=== PATIENT | female | born 1960 | race Caucasian/White ===

== ENCOUNTER 2018-11-13 04:18 | Inpatient (IN) | payer BC, SELFPAY ==
[2018-11-13] VITALS (28 sets, daily range): BP systolic 115–156; BP diastolic 50–91; PULSE 96–123; RESP 16–25; TEMP 36.4–37.3; O2SAT 97–100; BMI 20.7; BMI 21.3
[2018-11-13 04:26] LABS: Bedside Glucose > 500 mg/dL (70-110)
[2018-11-13] MEDS: 0.9% Normal Saline 1,000 ML 1000 ML IV ×2 (04:50→05:51)
--- NOTE | 2018-11-13 05:33 | EKG12_ITS ---
Test Reason : DYSRHYTHMIA Blood Pressure : / mmHG Vent. Rate : 124 BPM Atrial Rate : 124 BPM P-R Int : 126 ms QRS Dur : 082 ms QT Int : 336 ms P-R-T Axes : 063 059 053 degrees QTc Int : 482 ms Sinus tachycardia Possible Left atrial enlargement Nonspecific ST abnormality Abnormal ECG Confirmed by PATRICIA TELLO, FIORELLA ([id number]), content editor PURA MEJIA ([id number]) on 11/14/2018 1:34:34 PM Referred By: OLIVER Confirmed By:FIORELLA GOMEZ MD
--- NOTE | 2018-11-13 05:33 | RAD_ITS ---
STUDY: X-RAY CHEST REASON FOR EXAM: Female, 58 years old. Fever. Vomiting. TECHNIQUE: Single AP portable view of the chest. COMPARISON: None. FINDINGS: The lungs are clear and expanded. There is no demonstrated pleural abnormality. Normal size heart. Normal mediastinum. There are calcified granulomas overlying the left hilum.. Normal visualized pulmonary arteries. Normal visualized aortic arch and descending thoracic aorta. There are no visualized acute osseous abnormalities. There is old right clavicular fracture. There are postsurgical changes in the left humerus. There is no demonstrated abnormality of the visualized soft tissue structures of the upper abdomen. RAD/Chest 1 View (Portable) IMPRESSION: No evidence for acute cardiopulmonary pathology. Electronically Signed: Ivan Zaragoza MD at 6:08 EDT , Service support ,
[2018-11-13 05:48] LABS: Bacteria 0 SEEN /hpf (None Seen); Mucous, Urine 0 SEEN /hpf (<or=2+); Red Blood Cells-Urine 0 SEEN /hpf (0-5); White Blood Cells 0 SEEN /hpf (0-5)
[2018-11-13] MEDS: proMETHazine 25 MG/ML Syringe 6.25 MG IV (05:51)
--- NOTE | 2018-11-13 06:02 | ED.VIS.GEN ---
History of Present Illness Chief Complaint: Nausea/Vomiting Informant: Patient Onset: Yesterday Context: Gradual Onset Timing: Continuous Quality: nonbilious nonbloody emesis Current Severity: Severe Maximum Severity: Severe Associated Symptoms: diarrhea, fever to 99.x, polyuria Narrative: Patient is a type I diabetic, her blood sugar meter started working improperly 2 days ago, so she has not been able to check her blood sugar since then, she has no insulin pump but injects medication, has been vomiting and not able to keep any fluids down since yesterday, denies any abdominal or chest pain or shortness of breath. She feels dehydrated. - Past Medical History (1) Type 1 diabetes mellitus Status: Chronic Past Medical History - Allergies and Home Meds Allergies/Adverse Reactions: Allergies Penicillins Adverse Reaction (Verified 11/13/18 04:22) Itching Primary Care Physician: Trev Guaman,Out of [Primary Care Provider] - Lives: With Family Smoking Status: Former smoker Drugs: None Review of Systems General: Reports: Fever, Malaise. Denies: Chills, Sweats Eyes: Denies: Visual changes - bilaterally, Diplopia ENT: Denies: Rhinorrhea, Sore throat Cardiovascular: Denies: Chest pain, Palpitations Respiratory: Denies: Dyspnea, Cough, Dyspnea on exertion Gastrointestinal: Reports: Nausea, Vomiting, Diarrhea. Denies: Abdominal pain, Melena, Hematochezia Genitourinary: Reports: Frequency. Denies: Dysuria, Hematuria Musculoskeletal: Denies: Back pain, Extremity Pain Skin: Denies: Rash, Abscess, Wounds Neurological: Denies: Headache, Weakness, Numbness Endocrine: Reports: Polyuria, Polydipsia Physical Exam Vital Signs/Narrative: Vital Signs Temp Pulse Resp BP Pulse Ox 11/13/18 04:22 141/57 H 11/13/18 04:19 99.1 F 123 H 18 99 Inital Vital Signs reviewed: Yes General: Well nourished, Well developed, No Acute Distress Head: Normocephalic, Atraumatic Eyes: Perrl, EOMI ENT: No rhinorrhea, TM's clear, Dry mucous membranes Neck: Supple, Nontender, No lymphadenopathy Cardiovascular: Regular rate, Regular rhythm, No murmurs, Tachycardia Respiratory: No distress, CTA bilaterally, Chest nontender Abdomen: Soft, Nontender, Nondistended, Normal bowel sounds Back: Nontender, Normal Inspection. Negative for: CVA tenderness Extremities: Nontender, No edema. Negative for: Calf Tenderness Skin: Normal color, No rash, No Trauma Neurological: Alert, Oriented x3, Cranial nerves II-XII grossly intact, Normal Strength, Normal Sensation Psychological: Normal affect, Normal Mood Diagnostic/Tx/Re-eval Impressions Chest X-Ray 11/13/18 05:33 IMPRESSION: No evidence for acute cardiopulmonary pathology. Electronically Signed: Ivan Zaragoza MD at 6:08 EDT , Service support , 11/13/18 05:33 Chest 1 View (Portable) [RAD] Stat Laboratory Results 11/13/18 11/13/18 11/13/18 04:21 04:30 04:30 WBC 23.9 H RBC 4.36 Hgb 14.0 Hct 41.5 MCV 95.2 MCH 32.1 H MCHC 33.7 RDW 12.6 RDW Differential 43.6 Plt Count 325 MPV 11.2 Immature Gran % (Auto) 1.000 H Neut % (Auto) 84.3 H Lymph % (Auto) 7.7 L Webb % (Auto) 6.4 Eos % (Auto) 0.3 Baso % (Auto) 0.3 Absolute Neuts (auto) 20.2 H Absolute Lymphs (auto) 1.85 Specimen Type Sample Site pH Bicarbonate Actual POC Total CO2 Base Excess O2 Saturation ABG pCO2 ABG pO2 Dereck Test O2 Delivery Device Blood Gas Notified Whom Blood Gas Notified Time Sodium 136 Potassium 4.4 Chloride 90 L Carbon Dioxide 11.0 L Anion Gap 35 H BUN 30 H Creatinine 1.60 H Estim Creat Clear Calc 37.13 Est GFR (MDRD) Af Amer 43 L Est GFR (MDRD) Non-Af 35 L BUN/Creatinine Ratio 18.8 Glucose 656 H* Calcium 10.0 Urine Color Urine Clarity Urine pH Ur Specific [place] Urine Protein Urine Glucose (UA) Urine Ketones Urine Occult Blood Urine Nitrite Urine Bilirubin Urine Urobilinogen Ur Leukocyte Esterase Urine RBC Urine WBC Ur Squamous Epith Cells Urine Bacteria Urine Mucus Acetone Level POC Glucose > 500 H* 11/13/18 11/13/18 11/13/18 05:10 05:57 06:08 WBC RBC Hgb Hct MCV MCH MCHC RDW RDW Differential Plt Count MPV Immature Gran % (Auto) Neut % (Auto) Lymph % (Auto) Webb % (Auto) Eos % (Auto) Baso % (Auto) Absolute Neuts (auto) Absolute Lymphs (auto) Specimen Type ART Sample Site R Radial pH 7.18 L* Bicarbonate Actual 8.1 L POC Total CO2 9 Base Excess -20 L O2 Saturation 97 ABG pCO2 21.6 L ABG pO2 114 H Dereck Test POS O2 Delivery Device Room Air Blood Gas Notified Whom ED MD Blood Gas Notified Time 600 Sodium Potassium Chloride Carbon Dioxide Anion Gap BUN Creatinine Estim Creat Clear Calc Est GFR (MDRD) Af Amer Est GFR (MDRD) Non-Af BUN/Creatinine Ratio Glucose Calcium Urine Color Yellow Urine Clarity Clear Urine pH 5.0 Ur Specific [place] 1.020 Urine Protein 15 H Urine Glucose (UA) 1000 H Urine Ketones 150 H Urine Occult Blood 10 H Urine Nitrite Negative Urine Bilirubin Negative Urine Urobilinogen Normal Ur Leukocyte Esterase Negative Urine RBC 0 SEEN Urine WBC 0 SEEN Ur Squamous Epith Cells 0-5 SEEN Urine Bacteria 0 SEEN Urine Mucus 0 SEEN Acetone Level LARGE H POC Glucose - Rhythm Strip Rhythm Strip: Sinus Tach Rate: 120 Ectopy: None - EKG Initial EKG Interpretation: No Acute Injury Pattern, Sinus Tachycardia, - - Borderline prolonged QTC. No peaked T waves. Narrow QRS. - Medical Decision Making ABG shows a pH of 7.18, PCO2 21.6, bicarb calculated at 8.1. Along with large ketones, significant leukocytosis, blood sugar 659, consistent with diabetic ketoacidosis. Her potassium is within normal limits, she is started on an insulin drip along with 2 L IV isotonic fluid bolus. She was also given Phenergan for nausea, Zofran was already given by EMS, that is doing better now and she is sipping on some water without emesis. Chest x-ray shows no signs of pneumonia and urinalysis shows no sign of infection there. Will discuss with hospitalist and first line supervisor and admit her to the ICU. - Critical Care Time Critical care time (excluding procedures): 30-74 minutes - 35 min, Including time spent:, Discussing w/Patient &/or Family/Portfolio Lead, Discussing w/Consultants, Arranging Admission or Transfer, Performing Direct Patient Care at Bedside ED Disposition - Plan for ED Patient: Disposition: Acute Care Hospital [facility] [place] Diagnosis: DKA (diabetic ketoacidosis) Referrals: [facility] Doctor,Out of [Primary Care Provider] -
--- NOTE | 2018-11-13 06:04 | ED.RN ---
BLOOD CULTURES X 2 DRAWN AND SENT.
[2018-11-13 06:13] LABS: Color, Urine Yellow (Yellow); Glucose, Dipstick 1000 mg/dl (Normal); Leukocyte Esterase-Dipstick Negative /ul (Negative); Nitrite-Dipstick Negative (Negative); Occult Blood-Urine 10 /ul (Negative); Protein-Dipstick 15 mg/dl (Negative); Urine Bilirubin Dipstick Negative (Negative); Urine Clarity Clear (Clear); Urine Urobilinogen Normal (Normal)
--- NOTE | 2018-11-13 06:14 | CPS ---
CRITICAL ABG VALUES GIVEN TO DR BOYD VERBALLY IN ER
[2018-11-13 06:15] LABS: Ketone-Dipstick 150 mg/dl (Negative)
[2018-11-13 06:16] LABS: Allen Test POS; Base Excess -20 mmol/L (-2 to +2); Bicarbonate 8.1 mmol/L (22-26); Blood Gas Specimen Type ART; O2 Delivery Device Room Air; PO2 114 mmHG (75-100); SITE R Radial; SO2 97 % (95-99); Time Given 600; Total Carbon Dioxide 9 mmol/L; pCO2 21.6 mmHg (35-45); pH 7.18 (7.35-7.45)
--- NOTE | 2018-11-13 06:17 | ED.RN ---
CRITICAL OF 656 TAKEN FROM MD JERSEY AWARE.
[2018-11-13 06:18] LABS: Absolute Lymphocyte Count 1.85 X10^3/ul (0.83-4.51); Absolute Neutrophil Count 20.2 X10^3/uL (2.0-7.7); Anion Gap 35 (5-15); BUN 30 mg/dL (7-18); BUN/Creat Ratio 18.8 RATIO (10-20); Basophil# 0.06 X10^3/uL; Basophil% 0.3 % (0-1); Chloride 90 mmol/L (98-107); EST Glomerular Filtration Rate 35 mL/min (>60); Eosinophil# 0.06 X10^3/uL; Eosinophils% 0.3 % (0-5); Est Glom Filt Rate - Afr Amer 43 mL/min (>60); Estimated Creatinine Clearance 37.13 ml/min; Glucose 656 mg/dL (74-106); Hematocrit 41.5 % (37-47); Lymphocyte # 1.85 X10^3/ul (4.0); Lymphocyte % 7.7 % (19-41); Mean Corp Hgb Conc 33.7 g/gl (32-36); Mean Corpuscular Hgb 32.1 pg (27.0-32.0); Mean Corpuscular Volume 95.2 fL (81-99); Mean Platelet Vol. 11.2 fl (6.2-12.0); Monocyte# 1.54 X10^3/uL; Monocyte% 6.4 % (0-10); Neutrophil # 20.16 X10^3/uL (2.7-7.7); Neutrophil % 84.3 % (47-70); Platelet Count 325 K/mm3 (150-450); Potassium 4.4 mmol/L (3.5-5.1); RBC Distribution Width CV 12.6 % (11.6-14.6); RBC Distribution Width SD 43.6 fl (35.1-43.9); Red Blood Count 4.36 M/mm3 (4.2-5.4); Sodium Level 136 mmol/L (136-145); White Blood Count 23.9 K/mm3 (4.4-11.0)
[2018-11-13 06:20] LABS: Differential Indicated SCAN CRITERIA MET; POSITIVE COUNT NO; POSITIVE DIFFERENTIAL YES; POSITIVE MORPHOLOGY YES
[2018-11-13 06:24] LABS: Squamous Epithelial Cells - UA 0-5 SEEN /hpf (5-10)
[2018-11-13 06:37] LABS: Lactic Acid 3.3 mmol/L (0.4-2.0)
--- NOTE | 2018-11-13 06:43 | ED.RN ---
CRITICAL LAB VALUE TAKEN FROM EH IN THE LAB, LACTIC ACID CRIT AT 3.3. DR. BOYD MADE AWARE. NO FURTHER ORDERS AT THIS TIME.
[2018-11-13 07:05] LABS: Bedside Glucose > 500 mg/dL (70-110)
[2018-11-13 07:07] LABS: Differential Comment SCANNED
--- NOTE | 2018-11-13 07:12 | PCM.HP.STD ---
Problem List (1) DKA (diabetic ketoacidosis) Status: Acute (2) Type 1 diabetes mellitus Status: Chronic History of Present Illness Date of Admission: 11/13/18 Chief Complaint: NAUSEA,VOMITING AND DIARRHEA The patient is a 58 year old F with a significant history of type 1 diabetes; CAD with stent; tobacco abuse; hypertension who presented to the emergency department with 1 day history of nausea; vomiting and diarrhea. Also she has polyuria. Patient lives around [facility] and she traveled to [facility] without drinking and had a glucometer. She takes long-acting insulin twice a day that she reports compliance. At this time she does calorie counts and guess a sliding scale insulin. She denies any abdominal pain. She reported that her diarrhea is slowing down. She has 3 formed soft stools on the day prior to presentation and one formed stool on the service station operator of day of presentation. At the emergency department patient was found to have metabolic acidosis on ABG; and leukocytosis as well lactic acidosis. Past Medical History Past Medical History (Chronic Problems): Chronic Problems Type 1 diabetes mellitus (Chronic) Medical History: Medical History (Last Updated 11/13/18 @ 07:36 by Kana Brannon MD) Coronary artery disease I25.10 HTN (hypertension) I10 Allergies Penicillins Adverse Reaction (Verified 11/13/18 04:22) Itching Surgical History: - - Shoulder surgery Lives: Spouse/ Significant Other - Live with spouse [facility] recently flew to the [facility]. Smoking Status: Current every day smoker Tobacco Use: Cigarettes Alcohol: Occasional - Drinks about 2 beers per day per patient's; father gives inconsistent alcohol history of patient. Drugs: None - *Family History Maternal History Items: - - Patient does not know. Paternal History Items: Diabetes Review of Systems Constitutional: Reports: Fever - Low-grade fever of 99.8 at home. Denies: Chills, Weight Change HEENT: Denies: Head Aches, Sinus Congestion, Sinus Drainage Cardiovascular: Denies: Chest Pain, Palpitations Respiratory: Denies: Cough, Shortness of breath at rest, Sputum production Gastrointestinal: Reports: Diarrhea, Nausea, Vomiting. Denies: Abdominal Pain Genitourinary: Denies: Dysuria Musculoskeletal: Denies: Joint Pain, Joint Tenderness Skin: Denies: Rash, Wounds Neurological: Denies: Numbness, Tingling, Focal weakness Psychiatric: Denies: Anxiety, Depression, Homicidal Ideations, Suicidal Ideations Hematologic/ Lymphatic: Denies: Easy Bruising, Easy Bleeding VTE Information - Inpt Only VTE Present on Admission: No VTE Mechan Device Prophylaxis: None VTE Pharm Prophylaxis ordered?: Yes Patient Problems: Active and Suspected Problems DKA (diabetic ketoacidosis) (Acute) - Physical Exam General: Alert, - - Incoherent speech HEENT: Atraumatic, PERRLA, EOMI, Normocephalic Neck: Supple, No JVD, Negative Carotid Bruits Lungs: Clear to auscultation, Normal air movement, Tachypneic Cardiovascular: No murmurs, Tachycardic Abdomen: Bowel Sounds Present, Soft, Non Tender Extremities: No edema, Capillary Refill Less than 3 Seconds Skin: No rashes, No breakdown Musculoskeletal: No Tenderness to Palpation of Joints or Extremities Neurological: Cranial nerves II-XII grossly intact Psych/Mental Status: Normal Affect, Appropriate Vital Signs Temp Pulse Resp BP Pulse Ox 99.1 F 116 H 21 H 121/51 H 100 11/13/18 04:19 11/13/18 07:00 11/13/18 07:00 11/13/18 07:00 11/13/18 07:00 Oxygen Delivery Method Room Air Weight: 59.9 kg Body Mass Index (BMI) 20.7 Finger Stick Blood Glucose 500 Laboratory Tests Past 24 Hrs 11/13/18 11/13/18 11/13/18 04:30 04:30 05:10 WBC 23.9 H RBC 4.36 Hgb 14.0 Hct 41.5 MCV 95.2 MCH 32.1 H MCHC 33.7 RDW 12.6 RDW Differential 43.6 Plt Count 325 MPV 11.2 Immature Gran % (Auto) 1.000 H Neut % (Auto) 84.3 H Lymph % (Auto) 7.7 L Mcdonald % (Auto) 6.4 Eos % (Auto) 0.3 Baso % (Auto) 0.3 Absolute Neuts (auto) 20.2 H Absolute Lymphs (auto) 1.85 Total Counted Not Reportable Differential Comment SCANNED Diff Path Review May foll Specimen Type Sample Site pH Bicarbonate Actual POC Total CO2 Base Excess O2 Saturation ABG pCO2 ABG pO2 Edreck Test O2 Delivery Device Blood Gas Notified Whom Blood Gas Notified Time Sodium 136 Potassium 4.4 Chloride 90 L Carbon Dioxide 11.0 L Anion Gap 35 H BUN 30 H Creatinine 1.60 H Estim Creat Clear Calc 37.13 Est GFR (MDRD) Af Amer 43 L Est GFR (MDRD) Non-Af 35 L BUN/Creatinine Ratio 18.8 Glucose 656 H* Lactic Acid Calcium 10.0 Urine Color Yellow Urine Clarity Clear Urine pH 5.0 Ur Specific [place] 1.020 Urine Protein 15 H Urine Glucose (UA) 1000 H Urine Ketones 150 H Urine Occult Blood 10 H Urine Nitrite Negative Urine Bilirubin Negative Urine Urobilinogen Normal Ur Leukocyte Esterase Negative Urine RBC 0 SEEN Urine WBC 0 SEEN Ur Squamous Epith Cells 0-5 SEEN Urine Bacteria 0 SEEN Urine Mucus 0 SEEN Acetone Level 11/13/18 11/13/18 11/13/18 05:57 05:57 06:08 WBC RBC Hgb Hct MCV MCH MCHC RDW RDW Differential Plt Count MPV Immature Gran % (Auto) Neut % (Auto) Lymph % (Auto) Mcdonald % (Auto) Eos % (Auto) Baso % (Auto) Absolute Neuts (auto) Absolute Lymphs (auto) Total Counted Differential Comment Diff Path Review Specimen Type ART Sample Site R Radial pH 7.18 L* Bicarbonate Actual 8.1 L POC Total CO2 9 Base Excess -20 L O2 Saturation 97 ABG pCO2 21.6 L ABG pO2 114 H Dereck Test POS O2 Delivery Device Room Air Blood Gas Notified Whom ED Blood Gas Notified Time 600 Sodium Potassium Chloride Carbon Dioxide Anion Gap BUN Creatinine Estim Creat Clear Calc Est GFR (MDRD) Af Amer Est GFR (MDRD) Non-Af BUN/Creatinine Ratio Glucose Lactic Acid 3.3 H Calcium Urine Color Urine Clarity Urine pH Ur Specific [place] Urine Protein Urine Glucose (UA) Urine Ketones Urine Occult Blood Urine Nitrite Urine Bilirubin Urine Urobilinogen Ur Leukocyte Esterase Urine RBC Urine WBC Ur Squamous Epith Cells Urine Bacteria Urine Mucus Acetone Level LARGE H POC Glucose 11/13/18 11/13/18 07:00 04:21 POC Glucose > 500 H* > 500 H* Assessment/Plan All Active Problems DKA (diabetic ketoacidosis) (Acute) The patient is a 58 year old F with a significant history of type 1 diabetes; CAD with stent; tobacco abuse; hypertension who presented to the emergency department with 1 day history of nausea;vomiting; diarrhea; polyuria consistent with DKA and probable gastroenteritis. DKA History of Type 1 DM Serum glucose and acetone was elevated on presentation Patient had an anion gap of 35 presentation. Her serum glucose was 656. Lactic acid was 3.3. PH was 7.18. Bicarbonate was 11. Insulin drip started from emergency department; continue Completed IV bolus of normal saline. Continue patient on normal saline infusion with potassium since potassium on presentation was 4.4. BMP every 4 hours to calculate anion gap. N.p.o. for now Admitted to ICU ICU electrolyte protocol ordered We will get A1c. Zofran IV as needed Noted to have leukocytosis which could be reactive or could be from gastroenteritis Trend CBC Supervisor Assembly Department consult. Acute gastroenteritis Supportive treatment with IV hydration and antiemetics with Zofran We will get enteric pathogen panel and C. difficile. CAD status post stents. Reportedly patient had stent in 2008 and then in 2013 she had something to do with the stent that could be stent exchange. On aspirin and Plavix. Consider resuming when patient is no longer n.p.o. Probable Alcoholism She reported that she drinks about 2 bottles of beer. She and her father are inconsistent on how much she drinks. Probably she is minimizing. Clinical monitoring. Tobacco abuse Counselled Decline nicotine DVT prophylaxis Subcutaneous Lovenox Code Visit Inpatient E&M: [id number] Init Hosp L3
--- NOTE | 2018-11-13 07:26 | ED.RN ---
verbal report given to veda.
[2018-11-13 08:16] LABS: Bedside Glucose > 500 mg/dL (70-110)
[2018-11-13] MEDS: 0.9% Normal Saline 1,000 ML 999 ML IV ×2 (08:54→09:55)
[2018-11-13 09:31] LABS: Bedside Glucose 458 mg/dL (70-110)
[2018-11-13 09:49] LABS: Anion Gap 27 (5-15); BUN 29 mg/dL (7-18); BUN/Creat Ratio 18.8 RATIO (10-20); Calcium,Total 8.4 mg/dL (8.5-10.1); Chloride 104 mmol/L (98-107); Creatinine, Serum 1.54 mg/dL (0.55-1.02); EST Glomerular Filtration Rate 37 mL/min (>60); Est Glom Filt Rate - Afr Amer 45 mL/min (>60); Estimated Creatinine Clearance 38.57 ml/min; Glucose 483 mg/dL (74-106); Potassium 3.7 mmol/L (3.5-5.1); Sodium Level 143 mmol/L (136-145)
[2018-11-13 09:50] LABS: Hemoglobin A1c 8.9 % (4.2-6.3)
[2018-11-13 10:04] LABS: Reflex Lactate? Y
--- NOTE | 2018-11-13 10:21 | CON.PCM_ITS ---
Problem List (1) CAD (coronary artery disease) Status: Chronic Qualifiers: Coronary Disease-Associated Artery/Lesion type: [place] artery [place] vs. transplanted heart: [place] heart Associated angina: without angina Qualified Code(s): I25.10 - Atherosclerotic heart disease of [place] coronary artery without angina pectoris (2) Hypertension Status: Chronic Qualifiers: Hypertension type: essential hypertension Qualified Code(s): I10 - Essential (primary) hypertension (3) Tobacco abuse Status: Chronic (4) Type 1 diabetes mellitus Status: Chronic Qualifiers: Diabetes mellitus complication status: with ketoacidosis Diabetes mellitus complication detail: without coma Qualified Code(s): E10.10 - Type 1 diabetes mellitus with ketoacidosis without coma (5) DKA (diabetic ketoacidosis) Status: Acute Qualifiers: Diabetes mellitus type: type 1 Diabetes mellitus complication detail: without coma Qualified Code(s): E10.10 - Type 1 diabetes mellitus with ketoacidosis without coma (6) IBS (irritable bowel syndrome) Status: Chronic Qualifiers: Irritable bowel syndrome type: with both diarrhea and constipation Qualified Code(s): K58.2 - Mixed irritable bowel syndrome Reason for Consult Date of Consultation: 11/13/18 Reason for Consultation: DKA History of Present Illness: The patient is a 58 year old F, with past medical history listed below, who presented to [facility] on 11/13/2018 secondary to nausea and vomiting over the previous 48 hours. Patient states that she uses Lantus at baseline, but is not been able to keep any fluids down over the previous 24 hours. Patient denied any abdominal, chest pain or shortness of breath. Patient stated that she felt dehydrated and came to the ER for evaluation. Patient is currently on vacation and away from home ([place], [place]). In the emergency room, she was noted to be significantly acidotic with a pH of 7.18 and a calculated bicarb of 8.1. Patient had a blood sugar of 659. Patient was given Phenergan, Zofran and 2 L of IV fluids. Chest x-ray showed no infiltrate and patient was admitted to the intensive care unit on an insulin drip for DKA. Patient reports she has been having some diarrhea recently. However, on further questioning, patient has been diagnosed with irritable bowel syndrome in the past. Patient states that she has periodic diarrhea and constipation. Patient is unclear if she has had any recent fever, but does endorse polyuria. Patient states her last DKA was approximately 5 years ago. Patient reportedly uses 25 units of Lantus in the morning and 20 units at bedtime. Patient states that she was diagnosed with type 1 diabetes in her 30s, but does not know the exact etiology. Currently, patient is reporting thirst, but otherwise feels subjectively improved compared to admission. Patient denies any nausea, but admits that she has not put much on her stomach thus far today. Patient does report recently having 3 soft stools per day. Patient is currently on contact isolation for possible C. difficile, but no stools have been noted. Past Medical History Past Medical History (Chronic Problems): Chronic Problems (Last Updated 11/13/18 @ 07:36 by Kana Brannon MD) Type 1 diabetes mellitus (Chronic) CAD (coronary artery disease) (Chronic) Hypertension (Chronic) Tobacco abuse (Chronic) IBS (irritable bowel syndrome) (Chronic) Medical History: Medical History (Last Updated 11/13/18 @ 07:36 by Kana Brannon MD) Coronary artery disease I25.10 HTN (hypertension) I10 Allergies Penicillins Adverse Reaction (Verified 11/13/18 04:22) Itching Home Medications: Ambulatory Orders Medication Instructions Recorded ALPRAZolam [Xanax] 0.5 mg PO BID PRN PRN 11/13/18 Fluticasone/Salmeterol [Advair 1 ea IH DAILY PRN 11/13/18 250-50 Diskus] Insulin Glargine,Hum.rec.anlog 25 unit SQ BID 11/13/18 [Lantus] Insulin Lispro [Humalog] 5 unit SQ ACHS 11/13/18 Surgical History: - - Shoulder surgery Lives: Spouse/ Significant Other - Live with spouse [facility] flew to the [facility]. Smoking Status: Current some day smoker Tobacco Use: Cigarettes Alcohol: Occasional - Drinks about 2 beers per day per patient's; father gives inconsistent alcohol history of patient. Drugs: None - *Family History Maternal History Items: - - Patient does not know. Paternal History Items: Diabetes Review of Systems Comment: See HPI, otherwise negative x10 systems. Patient Problems: Active and Suspected Problems (Last Updated 11/13/18 @ 07:36 by Kana Brannon MD) DKA (diabetic ketoacidosis) (Acute) Objective: All imaging was personally reviewed. Agree with formal interpretation. - Physical Exam General: Alert, Oriented x3, Cooperative, No apparent distress, Well developed, Well nourished, - - No conversational dyspnea. Appears older than stated age. HEENT: Atraumatic, PERRLA, EOMI, Normocephalic, - - No scleral icterus or injection noted. Oral: No Gingival or Mucosal Lesions/ Ulcerations, Dry Mucosa, - - Fair dentition. Neck: Supple, No JVD, No Nodes, Trachea Midline Lungs: Clear to auscultation, No rhonchi, No wheeze, No rales, - - Tachypneic, but no accessory muscle use noted. Cardiovascular: Normal S1, Normal S2, No murmurs, No rub noted, No Gallop, Tachycardic, - - Sinus tachycardia noted on telemetry Abdomen: Soft, Non Tender, Non-Distended, Hyperactive Bowel Sounds Extremities: No clubbing, No cyanosis, No edema, Capillary Refill Less than 3 Seconds Skin: No rashes, No breakdown Musculoskeletal: No Tenderness to Palpation of Joints or Extremities Lymphatic: No Cervical, Supraclavicular, or Inguinal Adenopathy Neurological: Cranial nerves II-XII grossly intact, Neuro grossly intact, Motor Exam 5/5 strength throughout Psych/Mental Status: Alert and oriented to time, place, person, mood and affect Vital Signs Temp Pulse Resp BP Pulse Ox 36.4 C L 115 H 25 H 121/51 H 100 11/13/18 07:13 11/13/18 07:13 11/13/18 07:13 11/13/18 07:13 11/13/18 07:13 Oxygen Delivery Method Room Air Weight: 61.8 kg Body Mass Index (BMI) 20.7 Finger Stick Blood Glucose 500 Laboratory Tests Past 24 Hrs 11/13/18 11/13/18 11/13/18 04:30 04:30 05:10 WBC 23.9 H RBC 4.36 Hgb 14.0 Hct 41.5 MCV 95.2 MCH 32.1 H MCHC 33.7 RDW 12.6 RDW Differential 43.6 Plt Count 325 MPV 11.2 Immature Gran % (Auto) 1.000 H Neut % (Auto) 84.3 H Lymph % (Auto) 7.7 L [place] % (Auto) 6.4 Eos % (Auto) 0.3 Baso % (Auto) 0.3 Absolute Neuts (auto) 20.2 H Absolute Lymphs (auto) 1.85 Total Counted Not Reportable Differential Comment SCANNED Diff Path Review May foll Specimen Type Sample Site pH Bicarbonate Actual POC Total CO2 Base Excess O2 Saturation ABG pCO2 ABG pO2 Dereck Test O2 Delivery Device Blood Gas Notified Whom Blood Gas Notified Time Sodium 136 Potassium 4.4 Chloride 90 L Carbon Dioxide 11.0 L Anion Gap 35 H BUN 30 H Creatinine 1.60 H Estim Creat Clear Calc 37.13 Est GFR (MDRD) Af Amer 43 L Est GFR (MDRD) Non-Af 35 L BUN/Creatinine Ratio 18.8 Glucose 656 H* Hemoglobin A1c Lactic Acid Calcium 10.0 Urine Color Yellow Urine Clarity Clear Urine pH 5.0 Ur Specific Hunter 1.020 Urine Protein 15 H Urine Glucose (UA) 1000 H Urine Ketones 150 H Urine Occult Blood 10 H Urine Nitrite Negative Urine Bilirubin Negative Urine Urobilinogen Normal Ur Leukocyte Esterase Negative Urine RBC 0 SEEN Urine WBC 0 SEEN Ur Squamous Epith Cells 0-5 SEEN Urine Bacteria 0 SEEN Urine Mucus 0 SEEN Acetone Level 11/13/18 11/13/18 11/13/18 05:57 05:57 06:08 WBC RBC Hgb Hct MCV MCH MCHC RDW RDW Differential Plt Count MPV Immature Gran % (Auto) Neut % (Auto) Lymph % (Auto) [place] % (Auto) Eos % (Auto) Baso % (Auto) Absolute Neuts (auto) Absolute Lymphs (auto) Total Counted Differential Comment Diff Path Review Specimen Type ART Sample Site R Radial pH 7.18 L* Bicarbonate Actual 8.1 L POC Total CO2 9 Base Excess -20 L O2 Saturation 97 ABG pCO2 21.6 L ABG pO2 114 H Dereck Test POS O2 Delivery Device Room Air Blood Gas Notified Whom ED Blood Gas Notified Time 600 Sodium Potassium Chloride Carbon Dioxide Anion Gap BUN Creatinine Estim Creat Clear Calc Est GFR (MDRD) Af Amer Est GFR (MDRD) Non-Af BUN/Creatinine Ratio Glucose Hemoglobin A1c Lactic Acid 3.3 H Calcium Urine Color Urine Clarity Urine pH Ur Specific Hunter Urine Protein Urine Glucose (UA) Urine Ketones Urine Occult Blood Urine Nitrite Urine Bilirubin Urine Urobilinogen Ur Leukocyte Esterase Urine RBC Urine WBC Ur Squamous Epith Cells Urine Bacteria Urine Mucus Acetone Level LARGE H 11/13/18 11/13/18 09:20 09:20 WBC RBC Hgb Hct MCV MCH MCHC RDW RDW Differential Plt Count MPV Immature Gran % (Auto) Neut % (Auto) Lymph % (Auto) [place] % (Auto) Eos % (Auto) Baso % (Auto) Absolute Neuts (auto) Absolute Lymphs (auto) Total Counted Differential Comment Diff Path Review Specimen Type Sample Site pH Bicarbonate Actual POC Total CO2 Base Excess O2 Saturation ABG pCO2 ABG pO2 Dereck Test O2 Delivery Device Blood Gas Notified Whom Blood Gas Notified Time Sodium 143 Potassium 3.7 Chloride 104 Carbon Dioxide 12.0 L Anion Gap 27 H BUN 29 H Creatinine 1.54 H Estim Creat Clear Calc 38.57 Est GFR (MDRD) Af Amer 45 L Est GFR (MDRD) Non-Af 37 L BUN/Creatinine Ratio 18.8 Glucose 483 H* Hemoglobin A1c 8.9 H Lactic Acid Calcium 8.4 L Urine Color Urine Clarity Urine pH Ur Specific Hunter Urine Protein Urine Glucose (UA) Urine Ketones Urine Occult Blood Urine Nitrite Urine Bilirubin Urine Urobilinogen Ur Leukocyte Esterase Urine RBC Urine WBC Ur Squamous Epith Cells Urine Bacteria Urine Mucus Acetone Level POC Glucose 11/13/18 11/13/18 11/13/18 09:08 08:09 07:00 POC Glucose 458 H* > 500 H* > 500 H* 11/13/18 04:21 POC Glucose > 500 H* Clinical Impression(s) from Imaging Studies Chest X-Ray 11/13/18 05:33 IMPRESSION: No evidence for acute cardiopulmonary pathology. Electronically Signed: Ivan Zaragoza MD at 6:08 EDT , Service support , Assessment/Plan Active and Suspected Problems (Last Updated 11/13/18 @ 07:36 by Kana Brannon MD) DKA (diabetic ketoacidosis) (Acute) RECOMMENDATIONS: 1. Continue aggressive fluid resuscitation 2. Insulin drip per DKA protocol 3. Symptomatic treatment of nausea and vomiting 4. Discontinue contact isolation if no stools in 24 hours 5. Monitor for signs and symptoms of withdrawal IMPRESSIONS: 1. Acute DKA in the setting of poorly controlled type 1 diabetes mellitus Exact etiology is unclear at this time. Patient reports good control, but hemoglobin A1c is over 8 at this time. Patient is normally on Lantus 25 every morning and 20 every afternoon. We will continue with DKA protocol after aggr essive fluid resuscitation. Possibly transition to p.o. diet at dinnertime. Treat nausea and vomiting symptomatically. High clinical suspicion for repletion of potassium being required given level of acidosis and presenting potassium of 4.4. 2. Possible acute gastroenteritis versus irritable bowel disease flare Patient does have a history of drinking, so chronic pancreatitis would also be a consideration. Patient has not had any stools since being in the intensive care unit. Patient is being ruled out for C. difficile, which is appropriate given significant leukocytosis. However, this is likely secondary to hemoconcentration more than acute C. difficile. 3. Coronary artery disease status post stents/possible alcoholism/tobacco abuse/poor historian Complicates care, management, recovery and prognosis. We will have to monitor for signs and symptoms of withdrawal and treat accordingly. Okay to resume aspirin and Plavix once patient is able to take p.o. from my perspective. Patient is being monitored with telemetry. Code Visit Inpatient E&M: 58017 Init Hosp L3
[2018-11-13 10:30] LABS: Bedside Glucose 410 mg/dL (70-110)
[2018-11-13] MEDS: 0.9% Normal Saline 1,000 ML 500 ML IV (11:00)
[2018-11-13] MEDS: Enoxaparin 40 MG/0.4 ML Syringe SC (11:31)
[2018-11-13] MEDS: 0.9% NaCl Peripheral Flush Adult/Peds IV ×2 (11:31→19:30)
[2018-11-13 11:41] LABS: Bedside Glucose 373 mg/dL (70-110)
[2018-11-13 11:49] LABS: Lactic Acid 1.5 mmol/L (0.4-2.0)
[2018-11-13 12:20] LABS: Bedside Glucose 303 mg/dL (70-110)
[2018-11-13 13:46] LABS: Bedside Glucose 276 mg/dL (70-110)
[2018-11-13 13:51] LABS: Anion Gap 14 (5-15); BUN 24 mg/dL (7-18); BUN/Creat Ratio 17.8 RATIO (10-20); Calcium,Total 7.9 mg/dL (8.5-10.1); Chloride 112 mmol/L (98-107); Creatinine, Serum 1.35 mg/dL (0.55-1.02); EST Glomerular Filtration Rate 43 mL/min (>60); Est Glom Filt Rate - Afr Amer 52 mL/min (>60); Estimated Creatinine Clearance 45.25 ml/min; Glucose 291 mg/dL (74-106); Potassium 3.8 mmol/L (3.5-5.1); Sodium Level 145 mmol/L (136-145)
[2018-11-13] MEDS: 0.9% Normal Saline 1,000 ML 150 ML IV ×2 (14:42→20:17)
--- NOTE | 2018-11-13 15:13 | CASEMGMT ---
RN CM Assessment Presentation: DKA, Type 1 diabetic Intro role of CM and purpose of RN CM assessment to patient who is traveling from [place]. Demographics, PCP and Pharmacy verified. Pt is visiting with her father who lives in [place]. Pt states she forgot to bring her glucose monitor with her and did not check her blood sugars. is mailing it to her and will arrive tomorrow. Pt has her insulin per her report. PCP: Dr. Maria Alejandra Andrea [id number] [facility] [address] [place] [address] Preferred Pharmacy: [facility] Retail Insurance: [place] Prescription Benefit: yes LNOK: Father, Dave Polanco. Pt has in [place] Living Arrangements: Lives independently at home, no DME Transportation: Drives DME: Blood Glucose monitoring machine HHC: none Patient DC goals: Home DC PLAN: anticipate home on discharge. Lovely RAMIRES RN ACM
[2018-11-13 15:30] LABS: Bedside Glucose 313 mg/dL (70-110)
[2018-11-13 16:30] LABS: Bedside Glucose 313 mg/dL (70-110)
[2018-11-13 17:35] LABS: Bedside Glucose 271 mg/dL (70-110)
[2018-11-13 18:00] LABS: BUN 23 mg/dL (7-18); Creatinine, Serum 1.31 mg/dL (0.55-1.02); EST Glomerular Filtration Rate 45 mL/min (>60); Estimated Creatinine Clearance 46.63 ml/min; Glucose 277 mg/dL (74-106)
[2018-11-13 18:01] LABS: Anion Gap 8 (5-15); BUN/Creat Ratio 17.6 RATIO (10-20); Chloride 114 mmol/L (98-107); Est Glom Filt Rate - Afr Amer 54 mL/min (>60); Potassium 3.6 mmol/L (3.5-5.1); Sodium Level 143 mmol/L (136-145)
--- NOTE | 2018-11-13 19:07 | PCM.HOSP.N ---
Hospitalist Note Patient seen and examined today in the ICU, late this afternoon her anion gap closed x2, I gave the order to resume her home Lantus and administer small dose of insulin with each meal, patient will be placed on a sliding scale and patient will continue to get IV fluids. Patient has had no diarrhea or vomiting today, she will be given a diet tonight and her sugars will continue to be monitored.
[2018-11-13] MEDS: Insulin Lispro 100 UNIT/ML INSULN.PEN SC (21:21)
[2018-11-13 21:26] LABS: Bedside Glucose 221 mg/dL (70-110)
[2018-11-14] MEDS: 0.9% Normal Saline 1,000 ML 150 ML IV ×2 (02:59→09:03)
[2018-11-14 03:00] VITALS: BP 168/73; PULSE 97; RESP 16; TEMP 36.7; O2SAT 100
[2018-11-14 03:16] VITALS: PULSE 92
[2018-11-14 03:27] LABS: Anion Gap 10 (5-15); BUN 16 mg/dL (7-18); BUN/Creat Ratio 15.4 RATIO (10-20); Calcium,Total 7.8 mg/dL (8.5-10.1); Chloride 113 mmol/L (98-107); Creatinine, Serum 1.04 mg/dL (0.55-1.02); EST Glomerular Filtration Rate 58 mL/min (>60); Est Glom Filt Rate - Afr Amer 70 mL/min (>60); Estimated Creatinine Clearance 58.74 ml/min; Glucose 139 mg/dL (74-106); Potassium 3.3 mmol/L (3.5-5.1); Sodium Level 146 mmol/L (136-145)
--- NOTE | 2018-11-14 06:34 | PN_ITS ---
Subjective: Patient did well overnight. No acute issues were reported. Patient was transitioned over to subcutaneous insulin without difficulty. Patient does not report feeling up to breakfast this morning, but will eat if I can leave. Patient does report that she recently had dental work on November 07 and this led to my previous DKA. General: Alert, Oriented x3, Cooperative, No apparent distress, Well developed, Well nourished, - - No conversational dyspnea. Speaks in full sentences. Appears older than stated age. HEENT: Atraumatic, PERRLA, EOMI, Normocephalic, - - Slight scleral injection without icterus Oral: Moist Mucosa, No Gingival or Mucosal Lesions/ Ulcerations Neck: Supple, No JVD, No Nodes, Trachea Midline Lungs: Clear to auscultation, Normal air movement, No rhonchi, No wheeze, No rales, - - Symmetric expansion. No dullness to percussion. Cardiovascular: Regular rate, Regular Rhythm, Normal S1, Normal S2, No murmurs, No rub noted, No Gallop Abdomen: Bowel Sounds Present, Soft, Non Tender, Non-Distended Extremities: No clubbing, No cyanosis, No edema, Capillary Refill Less than 3 Seconds Skin: No rashes, No breakdown Musculoskeletal: No Tenderness to Palpation of Joints or Extremities Lymphatic: No Cervical, Supraclavicular, or Inguinal Adenopathy Neurological: Cranial nerves II-XII grossly intact, Neuro grossly intact, Motor Exam 5/5 strength throughout Psych/Mental Status: Alert and oriented to time, place, person, mood and affect Vital Signs Temp Pulse Resp BP Pulse Ox 36.7 C 92 16 168/73 H 100 11/14/18 03:00 11/14/18 03:16 11/14/18 03:00 11/14/18 03:00 11/14/18 03:00 Oxygen Delivery Method Room Air Weight: 65.8 kg Body Mass Index (BMI) 20.7 Finger Stick Blood Glucose 500 Intake and Output for Last 24 Hours 11/12/18 11/13/18 11/14/18 23:59 23:59 23:59 Intake Total 5709 / 5709 Output Total 1920 / 1920 Balance 3789 / 3789 Labs (Last 48 Hours) 11/13/18 11/13/18 11/13/18 04:21 04:30 04:30 WBC 23.9 H RBC 4.36 Hgb 14.0 Hct 41.5 MCV 95.2 MCH 32.1 H MCHC 33.7 RDW 12.6 RDW Differential 43.6 Plt Count 325 MPV 11.2 Immature Gran % (Auto) 1.000 H Neut % (Auto) 84.3 H Lymph % (Auto) 7.7 L [place] % (Auto) 6.4 Eos % (Auto) 0.3 Baso % (Auto) 0.3 Absolute Neuts (auto) 20.2 H Absolute Lymphs (auto) 1.85 Total Counted Not Reportable Differential Comment SCANNED Diff Path Review May foll Specimen Type Sample Site pH Bicarbonate Actual POC Total CO2 Base Excess O2 Saturation ABG pCO2 ABG pO2 Dereck Test O2 Delivery Device Blood Gas Notified Whom Blood Gas Notified Time Sodium 136 Potassium 4.4 Chloride 90 L Carbon Dioxide 11.0 L Anion Gap 35 H BUN 30 H Creatinine 1.60 H Estim Creat Clear Calc 37.13 Est GFR (MDRD) Af Amer 43 L Est GFR (MDRD) Non-Af 35 L BUN/Creatinine Ratio 18.8 Glucose 656 H* Hemoglobin A1c Lactic Acid Calcium 10.0 Urine Color Urine Clarity Urine pH Ur Specific [place] Urine Protein Urine Glucose (UA) Urine Ketones Urine Occult Blood Urine Nitrite Urine Bilirubin Urine Urobilinogen Ur Leukocyte Esterase Urine RBC Urine WBC Ur Squamous Epith Cells Urine Bacteria Urine Mucus Acetone Level POC Glucose > 500 H* 11/13/18 11/13/18 11/13/18 05:10 05:57 05:57 WBC RBC Hgb Hct MCV MCH MCHC RDW RDW Differential Plt Count MPV Immature Gran % (Auto) Neut % (Auto) Lymph % (Auto) [place] % (Auto) Eos % (Auto) Baso % (Auto) Absolute Neuts (auto) Absolute Lymphs (auto) Total Counted Differential Comment Diff Path Review Specimen Type Sample Site pH Bicarbonate Actual POC Total CO2 Base Excess O2 Saturation ABG pCO2 ABG pO2 Dereck Test O2 Delivery Device Blood Gas Notified Whom Blood Gas Notified Time Sodium Potassium Chloride Carbon Dioxide Anion Gap BUN Creatinine Estim Creat Clear Calc Est GFR (MDRD) Af Amer Est GFR (MDRD) Non-Af BUN/Creatinine Ratio Glucose Hemoglobin A1c Lactic Acid 3.3 H Calcium Urine Color Yellow Urine Clarity Clear Urine pH 5.0 Ur Specific [place] 1.020 Urine Protein 15 H Urine Glucose (UA) 1000 H Urine Ketones 150 H Urine Occult Blood 10 H Urine Nitrite Negative Urine Bilirubin Negative Urine Urobilinogen Normal Ur Leukocyte Esterase Negative Urine RBC 0 SEEN Urine WBC 0 SEEN Ur Squamous Epith Cells 0-5 SEEN Urine Bacteria 0 SEEN Urine Mucus 0 SEEN Acetone Level LARGE H POC Glucose 11/13/18 11/13/18 11/13/18 06:08 07:00 08:09 WBC RBC Hgb Hct MCV MCH MCHC RDW RDW Differential Plt Count MPV Immature Gran % (Auto) Neut % (Auto) Lymph % (Auto) [place] % (Auto) Eos % (Auto) Baso % (Auto) Absolute Neuts (auto) Absolute Lymphs (auto) Total Counted Differential Comment Diff Path Review Specimen Type ART Sample Site R Radial pH 7.18 L* Bicarbonate Actual 8.1 L POC Total CO2 9 Base Excess -20 L O2 Saturation 97 ABG pCO2 21.6 L ABG pO2 114 H Dereck Test POS O2 Delivery Device Room Air Blood Gas Notified Whom ED MD Blood Gas Notified Time 600 Sodium Potassium Chloride Carbon Dioxide Anion Gap BUN Creatinine Estim Creat Clear Calc Est GFR (MDRD) Af Amer Est GFR (MDRD) Non-Af BUN/Creatinine Ratio Glucose Hemoglobin A1c Lactic Acid Calcium Urine Color Urine Clarity Urine pH Ur Specific [place] Urine Protein Urine Glucose (UA) Urine Ketones Urine Occult Blood Urine Nitrite Urine Bilirubin Urine Urobilinogen Ur Leukocyte Esterase Urine RBC Urine WBC Ur Squamous Epith Cells Urine Bacteria Urine Mucus Acetone Level POC Glucose > 500 H* > 500 H* 11/13/18 11/13/18 11/13/18 09:08 09:20 09:20 WBC RBC Hgb Hct MCV MCH MCHC RDW RDW Differential Plt Count MPV Immature Gran % (Auto) Neut % (Auto) Lymph % (Auto) [place] % (Auto) Eos % (Auto) Baso % (Auto) Absolute Neuts (auto) Absolute Lymphs (auto) Total Counted Differential Comment Diff Path Review Specimen Type Sample Site pH Bicarbonate Actual POC Total CO2 Base Excess O2 Saturation ABG pCO2 ABG pO2 Dereck Test O2 Delivery Device Blood Gas Notified Whom Blood Gas Notified Time Sodium 143 Potassium 3.7 Chloride 104 Carbon Dioxide 12.0 L Anion Gap 27 H BUN 29 H Creatinine 1.54 H Estim Creat Clear Calc 38.57 Est GFR (MDRD) Af Amer 45 L Est GFR (MDRD) Non-Af 37 L BUN/Creatinine Ratio 18.8 Glucose 483 H* Hemoglobin A1c 8.9 H Lactic Acid Calcium 8.4 L Urine Color Urine Clarity Urine pH Ur Specific [place] Urine Protein Urine Glucose (UA) Urine Ketones Urine Occult Blood Urine Nitrite Urine Bilirubin Urine Urobilinogen Ur Leukocyte Esterase Urine RBC Urine WBC Ur Squamous Epith Cells Urine Bacteria Urine Mucus Acetone Level POC Glucose 458 H* 11/13/18 11/13/18 11/13/18 10:16 11:00 11:22 WBC RBC Hgb Hct MCV MCH MCHC RDW RDW Differential Plt Count MPV Immature Gran % (Auto) Neut % (Auto) Lymph % (Auto) [place] % (Auto) Eos % (Auto) Baso % (Auto) Absolute Neuts (auto) Absolute Lymphs (auto) Total Counted Differential Comment Diff Path Review Specimen Type Sample Site pH Bicarbonate Actual POC Total CO2 Base Excess O2 Saturation ABG pCO2 ABG pO2 Dereck Test O2 Delivery Device Blood Gas Notified Whom Blood Gas Notified Time Sodium Potassium Chloride Carbon Dioxide Anion Gap BUN Creatinine Estim Creat Clear Calc Est GFR (MDRD) Af Amer Est GFR (MDRD) Non-Af BUN/Creatinine Ratio Glucose Hemoglobin A1c Lactic Acid 1.5 Calcium Urine Color Urine Clarity Urine pH Ur Specific [place] Urine Protein Urine Glucose (UA) Urine Ketones Urine Occult Blood Urine Nitrite Urine Bilirubin Urine Urobilinogen Ur Leukocyte Esterase Urine RBC Urine WBC Ur Squamous Epith Cells Urine Bacteria Urine Mucus Acetone Level POC Glucose 410 H 373 H 11/13/18 11/13/18 11/13/18 12:15 13:20 13:22 WBC RBC Hgb Hct MCV MCH MCHC RDW RDW Differential Plt Count MPV Immature Gran % (Auto) Neut % (Auto) Lymph % (Auto) [place] % (Auto) Eos % (Auto) Baso % (Auto) Absolute Neuts (auto) Absolute Lymphs (auto) Total Counted Differential Comment Diff Path Review Specimen Type Sample Site pH Bicarbonate Actual POC Total CO2 Base Excess O2 Saturation ABG pCO2 ABG pO2 Dereck Test O2 Delivery Device Blood Gas Notified Whom Blood Gas Notified Time Sodium 145 Potassium 3.8 Chloride 112 H Carbon Dioxide 19.0 L Anion Gap 14 BUN 24 H Creatinine 1.35 H Estim Creat Clear Calc 45.25 Est GFR (MDRD) Af Amer 52 L Est GFR (MDRD) Non-Af 43 L BUN/Creatinine Ratio 17.8 Glucose 291 H Hemoglobin A1c Lactic Acid Calcium 7.9 L Urine Color Urine Clarity Urine pH Ur Specific [place] Urine Protein Urine Glucose (UA) Urine Ketones Urine Occult Blood Urine Nitrite Urine Bilirubin Urine Urobilinogen Ur Leukocyte Esterase Urine RBC Urine WBC Ur Squamous Epith Cells Urine Bacteria Urine Mucus Acetone Level POC Glucose 303 H 276 H 11/13/18 11/13/18 11/13/18 15:21 16:24 17:20 WBC RBC Hgb Hct MCV MCH MCHC RDW RDW Differential Plt Count MPV Immature Gran % (Auto) Neut % (Auto) Lymph % (Auto) [place] % (Auto) Eos % (Auto) Baso % (Auto) Absolute Neuts (auto) Absolute Lymphs (auto) Total Counted Differential Comment Diff Path Review Specimen Type Sample Site pH Bicarbonate Actual POC Total CO2 Base Excess O2 Saturation ABG pCO2 ABG pO2 Dereck Test O2 Delivery Device Blood Gas Notified Whom Blood Gas Notified Time Sodium 143 Potassium 3.6 Chloride 114 H Carbon Dioxide 21.0 Anion Gap 8 BUN 23 H Creatinine 1.31 H Estim Creat Clear Calc 46.63 Est GFR (MDRD) Af Amer 54 L Est GFR (MDRD) Non-Af 45 L BUN/Creatinine Ratio 17.6 Glucose 277 H Hemoglobin A1c Lactic Acid Calcium 8.0 L Urine Color Urine Clarity Urine pH Ur Specific [place] Urine Protein Urine Glucose (UA) Urine Ketones Urine Occult Blood Urine Nitrite Urine Bilirubin Urine Urobilinogen Ur Leukocyte Esterase Urine RBC Urine WBC Ur Squamous Epith Cells Urine Bacteria Urine Mucus Acetone Level POC Glucose 313 H 313 H 11/13/18 11/13/18 11/14/18 17:26 21:20 03:05 WBC RBC Hgb Hct MCV MCH MCHC RDW RDW Differential Plt Count MPV Immature Gran % (Auto) Neut % (Auto) Lymph % (Auto) [place] % (Auto) Eos % (Auto) Baso % (Auto) Absolute Neuts (auto) Absolute Lymphs (auto) Total Counted Differential Comment Diff Path Review Specimen Type Sample Site pH Bicarbonate Actual POC Total CO2 Base Excess O2 Saturation ABG pCO2 ABG pO2 Dereck Test O2 Delivery Device Blood Gas Notified Whom Blood Gas Notified Time Sodium 146 H Potassium 3.3 L Chloride 113 H Carbon Dioxide 23.0 Anion Gap 10 BUN 16 Creatinine 1.04 H Estim Creat Clear Calc 58.74 Est GFR (MDRD) Af Amer 70 Est GFR (MDRD) Non-Af 58 L BUN/Creatinine Ratio 15.4 Glucose 139 H Hemoglobin A1c Lactic Acid Calcium 7.8 L Urine Color Urine Clarity Urine pH Ur Specific [place] Urine Protein Urine Glucose (UA) Urine Ketones Urine Occult Blood Urine Nitrite Urine Bilirubin Urine Urobilinogen Ur Leukocyte Esterase Urine RBC Urine WBC Ur Squamous Epith Cells Urine Bacteria Urine Mucus Acetone Level POC Glucose 271 H 221 H Medical Necessity - Tobacco Use Smoking Status: Current some day smoker Tobacco Use: Cigarettes Assessment/Plan All Active Problems (Last Updated 11/13/18 @ 07:36 by Kana Brannon MD) DKA (diabetic ketoacidosis) (Acute) RECOMMENDATIONS: 1. P.o. challenge this morning 2. Okay to discharge on normal basal insulin 3. Symptomatic treatment of nausea and vomiting 4. Hemodynamically stable on room air. Will sign off from a critical care perspective IMPRESSIONS: 1. Acute DKA in the setting of poorly controlled type 1 diabetes mellitus Exact etiology is unclear at this time. Patient does report recent dental work, and did have leukocytosis on presentation. Patient should likely follow- up with dentistry in the near future, but no abscess is apparent at this time. Patient reports good control, but hemoglobin A1c is over 8 at this time. Patient is normally on Lantus 25 every morning and 20 every afternoon. Patient currently doing well on subcutaneous insulin 2. Possible acute gastroenteritis versus irritable bowel disease flare Patient does have a history of drinking, so chronic pancreatitis would also be a consideration. Patient has not had any stools since being in the intensive care unit. Patient is being ruled out for C. difficile, which is appropriate given significant leukocytosis. However, this is likely secondary to hemoconcentration more than acute C. difficile. Blood cultures have been negative to this point 3. Coronary artery disease status post stents/possible alcoholism/tobacco abuse/poor historian Complicates care, management, recovery and prognosis. We will have to monitor for signs and symptoms of withdrawal and treat accordingly. Okay to resume aspirin and Plavix from my perspective. Patient is being monitored with telemetry. Code Visit Inpatient E&M: 99349 Subs Hosp L2
[2018-11-14 06:47] VITALS: O2SAT 100
[2018-11-14 07:11] LABS: Bedside Glucose 120 mg/dL (70-110)
[2018-11-14 07:28] VITALS: PULSE 90
[2018-11-14 07:51] LABS: Bedside Glucose 320 mg/dL (70-110)
[2018-11-14 07:51] LABS: Bedside Glucose 324 mg/dL (70-110)
[2018-11-14] MEDS: Insulin Lispro 100 UNIT/ML INSULN.PEN SC (08:25)
[2018-11-14] MEDS: Enoxaparin 40 MG/0.4 ML Syringe SC (08:26)
[2018-11-14 09:00] VITALS: BP 138/59; PULSE 94; RESP 16; TEMP 37.1; O2SAT 100
[2018-11-14 10:22] LABS: Pathologist Review Reviewed
--- NOTE | 2018-11-14 10:30 | PCM.DC ---
- Discharge Diagnoses Current Active Problems: Current Active and Chronic Problems (Last Updated 11/13/18 @ 07:36 by Kana Brannon MD) Type 1 diabetes mellitus (Chronic) DKA (diabetic ketoacidosis) (Acute) CAD (coronary artery disease) (Chronic) Hypertension (Chronic) Tobacco abuse (Chronic) IBS (irritable bowel syndrome) (Chronic) You will use the following diet at home:: Calorie/Carbohydrate Controlled (specify 1200, 1400, etc) - 2200 Your food should be the consistency of: Regular Your liquids should be the consistency of: Regular/Thin Discharge Activity: Return to Normal Activity Weight Bearing Status: Full weight bearing Allergies/Adverse Reactions: Allergies Penicillins Adverse Reaction (Verified 11/13/18 04:22) Itching Medications to take at Discharge ALPRAZolam [Xanax] 0.5 mg PO BID PRN PRN 11/13/18 Fluticasone/Salmeterol [Advair 250-50 Diskus] 1 ea IH DAILY PRN 11/13/18 Insulin Glargine,Hum.rec.anlog [Lantus] 25 unit SQ BID 11/13/18 Insulin Lispro [Humalog KwikPen] 8 unit SC TIDAC #1 insuln.pen 11/14/18 The following prescriptions were given: Insulin Lispro [Humalog KwikPen] 8 unit SC TIDAC #1 insuln.pen Primary Care Physician: [facility] Doctor,Out of [Primary Care Provider] - Please follow up with your Primary Care Physician in: when [facility] Test Results: Test results from this visit will be discussed in further detail at your follow-up appointment, if applicable.
--- NOTE | 2018-11-16 09:26 | PCM.DC.SUM ---
Discharge Date and Diagnosis Date of Admission: 11/13/18 Date of Discharge: 11/14/18 - Primary Discharge Diagnosis #1 diabetic ketoacidosis #2 type 1 diabetes-poorly controlled #3 chronic kidney disease stage III secondary to type 1 diabetes #4 leukocytosis secondary to DKA #5 viral gastroenteritis #6 coronary artery disease - Secondary Discharge Diagnosis Chronic Problems (Last Updated 11/13/18 @ 07:36 by Kana Brannon MD) Type 1 diabetes mellitus (Chronic) CAD (coronary artery disease) (Chronic) Hypertension (Chronic) Tobacco abuse (Chronic) IBS (irritable bowel syndrome) (Chronic) Hospital Course and Treatment Operations: None Procedures: None Summary of Care Provided: The patient is a 58 year old F who was seen in the emergency room at [facility] with chief complaint of persistent nausea and vomiting, she is a type I diabetic, she stated she was not able to keep any fluids down. Work-up in the emergency room revealed the patient to be in DKA, she was given IV fluids and an insulin drip was started in the emergency room. Patient was admitted to ICU and vigorous fluid resuscitation was continued, later that day the insulin drip was able to be discontinued and patient's blood sugars came under better control. On 11/14/2018, patient was seen and examined: On examination she appeared in good health and spirits. Vital signs as documented. Skin warm and dry and without overt rashes. Neck without JVD. Lungs clear. Heart exam notable for regular rhythm, normal sounds and absence of murmurs, rubs or gallops. Abdomen unremarkable and without evidence of organomegaly, masses, or abdominal aortic enlargement. Extremities nonedematous. Neuro: Cranial nerves II through XII are grossly intact, no focal motor deficits were noted, sensation to light touch and pinprick is intact. Psych: Patient is alert and oriented x3, she does not appear anxious or depressed On 11/14/2018, patient was seen and examined and felt to be in stable condition for discharge home - Physical Exam Vital Signs Temp Pulse Resp BP Pulse Ox 98.8 F 94 16 138/59 H 100 11/14/18 09:00 11/14/18 09:00 11/14/18 09:00 11/14/18 09:00 11/14/18 09:00 Oxygen Delivery Method Room Air Weight: 65.8 kg Body Mass Index (BMI) 20.7 Finger Stick Blood Glucose 500 Intake and Output for Last 24 Hours 11/14/18 11/15/18 11/16/18 23:59 23:59 23:59 Intake Total 1602 / 1602 Balance 1602 / 1602 Discharge Activity: Return to Normal Activity Weight Bearing Status: Full weight bearing Home Medications: Medications to take at Discharge ALPRAZolam [Xanax] 0.5 mg PO BID PRN PRN 11/13/18 Fluticasone/Salmeterol [Advair 250-50 Diskus] 1 ea IH DAILY PRN 11/13/18 Insulin Glargine,Hum.rec.anlog [Lantus] 25 unit SQ BID 11/13/18 Insulin Lispro [Humalog KwikPen] 8 unit SUBCUT TIDAC #1 insuln.pen 11/14/18 Following Prescrptions Were Given to Patient: Insulin Lispro [Humalog KwikPen] 8 unit SUBCUT TIDAC #1 insuln.pen Primary Care Physician: [facility] Doctor,Out of [Primary Care Provider] - Please follow up with your Primary Care Physician in: [facility] Disposition: Home Minutes spent on discharge:: 32 Patient Condition:: Stable Medical Necessity - Tobacco Use Smoking Status: Current some day smoker Tobacco Use: Cigarettes Meaningful Use Info Meaningful Use Diagnoses (Choose all that apply): None applicable Code Visit Inpatient E&M: 14770 Disch Hosp
== END 2018-11-14 11:48 | disposition home or self-care (01) | DRG 638 ==
LOC: ED 06:26 → ICU 09:05
PROVIDERS: Admitting Provider Hospitalist; Emergency Provider Emergency Medicine; Visit Provider Internal Medicine
DX: E10.10 Type 1 diabetes mellitus with ketoacidosis without coma (principal); N17.9 Acute kidney failure, unspecified; A08.4 Viral intestinal infection, unspecified; I25.10 Atherosclerotic heart disease of native coronary artery without angina pectoris; I10 Essential (primary) hypertension; F17.210 Nicotine dependence, cigarettes, uncomplicated; Z79.4 Long term (current) use of insulin; Z95.5 Presence of coronary angioplasty implant and graft; K58.9 Irritable bowel syndrome, unspecified
CPT/HCPCS: 36415; 36600; 71045; 80048; 81001; 82009; 82803; 82962; 83036; 83605; 85025; 87040; 93005; 97802; 99285; J7030; A4216

== ENCOUNTER 2018-11-16 09:26 | Inpatient (IN) | payer BC, SELFPAY ==
[2018-11-13 04:19] VITALS: BMI 20.7
[2018-11-16] VITALS (17 sets, daily range): BP systolic 122–184; BP diastolic 53–79; PULSE 90–121; RESP 18–30; TEMP 36.7–36.8; O2SAT 97–100; BMI 21.1; BMI 20.7
--- NOTE | 2018-11-16 09:41 | EKG12_ITS ---
Test Reason : NAUSEA/VOMITING Blood Pressure : / mmHG Vent. Rate : 109 BPM Atrial Rate : 109 BPM P-R Int : 114 ms QRS Dur : 084 ms QT Int : 356 ms P-R-T Axes : 072 064 045 degrees QTc Int : 479 ms Sinus tachycardia Otherwise normal ECG Confirmed by PATRICIA TELLO, FIORELLA ([id number]), make up editor PURA MEJIA ([id number]) on 11/17/2018 12:11:50 PM Referred By: DANNA Confirmed By:FIORELLA GOMEZ MD
--- NOTE | 2018-11-16 09:42 | RAD_ITS ---
STUDY: X-RAY CHEST REASON FOR EXAM: Female, 58 years old. Chest pain. TECHNIQUE: Single AP portable view of the chest. COMPARISON: Comparison is made with prior study dated November 2018. FINDINGS: EKG electrodes are seen. The lungs are clear and expanded. There is no demonstrated pleural abnormality. Normal size heart. Calcified left hilar lymph nodes. Normal visualized pulmonary arteries. Normal visualized aortic arch and descending thoracic aorta. Normal visualized thoracic spine. Prior ORIF of the proximal left humerus. There is no demonstrated abnormality of the visualized soft tissue structures of the upper abdomen. RAD/Chest 1 View (Portable) IMPRESSION: No acute abnormality is seen. Electronically Signed: Kermit Jackson, at 10:11 EDT , Service support ,
[2018-11-16 10:00] LABS: Absolute Lymphocyte Count 1.56 X10^3/ul (0.83-4.51); Absolute Neutrophil Count 8.9 X10^3/uL (2.0-7.7); Basophil# 0.05 X10^3/uL; Basophil% 0.4 % (0-1); Eosinophil# 0.03 X10^3/uL; Eosinophils% 0.3 % (0-5); Hematocrit 39.1 % (37-47); Lymphocyte # 1.56 X10^3/ul (4.0); Lymphocyte % 13.8 % (19-41); Mean Corp Hgb Conc 33.2 g/gl (32-36); Mean Corpuscular Hgb 31.4 pg (27.0-32.0); Mean Corpuscular Volume 94.4 fL (81-99); Mean Platelet Vol. 10.5 fl (6.2-12.0); Monocyte# 0.79 X10^3/uL; Neutrophil # 8.86 X10^3/uL (2.7-7.7); Neutrophil % 78.1 % (47-70); Platelet Count 214 K/mm3 (150-450); RBC Distribution Width CV 12.7 % (11.6-14.6); Red Blood Count 4.14 M/mm3 (4.2-5.4); White Blood Count 11.3 K/mm3 (4.4-11.0)
[2018-11-16 10:04] LABS: POSITIVE COUNT NO; POSITIVE DIFFERENTIAL NO; POSITIVE MORPHOLOGY NO
[2018-11-16] MEDS: 0.9% Normal Saline 1,000 ML 999 ML IV ×2 (10:06→12:34)
[2018-11-16 10:15] LABS: Bedside Glucose 490 mg/dL (70-110)
[2018-11-16] MEDS: Ondansetron 4 MG/2 ML Vial IV (10:15)
--- NOTE | 2018-11-16 10:17 | CPS ---
critical VBG value read to Dr. Bowers
--- NOTE | 2018-11-16 10:21 | NURSING ---
aware of lab values
[2018-11-16 10:22] LABS: Anion Gap 30 (5-15); BUN 17 mg/dL (7-18); BUN/Creat Ratio 13.7 RATIO (10-20); Calcium,Total 9.4 mg/dL (8.5-10.1); Chloride 97 mmol/L (98-107); Creatinine, Serum 1.24 mg/dL (0.55-1.02); EST Glomerular Filtration Rate 48 mL/min (>60); Est Glom Filt Rate - Afr Amer 58 mL/min (>60); Estimated Creatinine Clearance 48.86 ml/min; Glucose 508 mg/dL (74-106); Potassium 3.8 mmol/L (3.5-5.1); Sodium Level 134 mmol/L (136-145)
--- NOTE | 2018-11-16 10:31 | HP.PCM_ITS ---
History of Present Illness Date of Admission: 11/16/18 Chief Complaint: nausea, vomiting. The patient is a 58 year old F with a history of type 1 diabetes. Patient was recently admitted and managed for DKA and discharge exactly 2 days ago. Patient insists that she is compliant with her insulin and states that she took about 25 units of her Lantus yesterday and also took 18 units of Humalog. Patient is visiting her father from [place] and says she is follows up with a doctor in [place] for her diabetes. Upon discharge 2 days ago she went home but states she started having worsening nausea and vomiting and symptoms were not abating so she decided to come into the ED. Patient thinks that she has DKA and states this is her first episode of DKA in her lifetime. She does not understand why she is been getting DKA as this is compliant with her insulin. She denied any chest pain, palpitations or dizziness, fever or chills, shortness of breath or any other symptoms. Vitals in the ED was significant for heart rate of 110. EKG showed normal sinus rhythm but she was tachycardic. Chest x-r ay showed no acute cardiopulmonary process and CBC was 11.3. Blood glucose on admission was 508 and bicarb was 7. Anion gap was 30. VBG done showed a pH of 7.144 and PCO2 of 13. She had moderate acetone level and initial troponin was negative. Patient is being admitted to the ICU to be managed for DKA. She was started on IV fluids and insulin drip in the ED. [] Past Medical History Past Medical History (Chronic Problems): Chronic Problems (Last Updated 11/13/18 @ 07:36 by Kana Brannon MD) Type 1 diabetes mellitus (Chronic) CAD (coronary artery disease) (Chronic) Hypertension (Chronic) Tobacco abuse (Chronic) IBS (irritable bowel syndrome) (Chronic) Medical History: Medical History (Last Updated 11/13/18 @ 07:36 by Kana Brannon MD) Coronary artery disease I25.10 HTN (hypertension) I10 Allergies Penicillins Adverse Reaction (Verified 11/16/18 09:31) Itching Home Medications: Ambulatory Orders Medication Instructions Recorded ALPRAZolam [Xanax] 0.5 mg PO BID PRN PRN 11/13/18 Fluticasone/Salmeterol [Advair 1 ea IH DAILY PRN 11/13/18 250-50 Diskus] Insulin Glargine,Hum.rec.anlog 25 unit SQ BID 11/13/18 [Lantus] Insulin Lispro [Humalog KwikPen] 18 unit SUBCUT TIDAC 11/16/18 Surgical History: - - Shoulder surgery COMMUNITY ENGAGEMENT COORDINATOR History: No pertinent COMMUNITY ENGAGEMENT COORDINATOR history Lives: With Family Smoking Status: Former smoker Alcohol: None Drugs: None - *Family History Maternal History Items: - - Patient does not know. Paternal History Items: Diabetes Review of Systems Constitutional: Reports: Anorexia, Chills, Malaise, Weakness, Fatigue. Denies: Fever Eyes: Denies: Blurred vision HEENT: Denies: Head Aches, Sinus Congestion, Sinus Drainage Cardiovascular: Denies: Chest Pain, Chest Pressure, Chest Tightness, Palpitations Respiratory: Denies: Cough, Shortness of Breath, Shortness of breath at rest, Shortness of breath upon exertion, Sputum production Gastrointestinal: Reports: Nausea, Vomiting. Denies: Abdominal Pain, Diarrhea Genitourinary: Denies: Dysuria Musculoskeletal: Denies: Joint Pain, Joint Tenderness Skin: Denies: Rash, Wounds Neurological: Denies: Numbness, Tingling, Focal weakness Psychiatric: Denies: Anxiety, Depression, Homicidal Ideations, Suicidal Ideations Hematologic/ Lymphatic: Denies: Easy Bruising, Easy Bleeding VTE Information - Inpt Only VTE Present on Admission: No VTE Pharm Prophylaxis ordered?: Yes - Physical Exam General: Alert, Oriented x3, Cooperative, Lethargic HEENT: Atraumatic, PERRLA, EOMI, Normocephalic Oral: Dry Mucosa Neck: Supple, No JVD, Negative Carotid Bruits Lungs: Clear to auscultation, Normal air movement, No rhonchi, No wheeze, No rales Cardiovascular: Regular rate, Normal S1, Normal S2, No murmurs, Tachycardic Abdomen: Bowel Sounds Present, Soft, Non Tender, Non-Distended, No Hepato- splenomegaly Extremities: No clubbing, No cyanosis, No edema, Capillary Refill Less than 3 Seconds Skin: No rashes, No breakdown Musculoskeletal: No Tenderness to Palpation of Joints or Extremities Lymphatic: No Cervical, Supraclavicular, or Inguinal Adenopathy Neurological: Cranial nerves II-XII grossly intact, Neuro grossly intact, Motor Exam 5/5 strength throughout Psych/Mental Status: Normal Affect, Appropriate, Alert and oriented to time, place, person, mood and affect Vital Signs Temp Pulse Resp BP Pulse Ox 98.0 F 110 H 20 H 128/53 H 100 11/16/18 09:28 11/16/18 09:28 11/16/18 09:28 11/16/18 09:28 11/16/18 09:28 Oxygen Delivery Method Room Air Weight: 134 lb 11.239 oz Body Mass Index (BMI) 21.1 Finger Stick Blood Glucose 490 Laboratory Tests Past 24 Hrs 11/16/18 11/16/18 11/16/18 09:53 09:53 09:53 WBC 11.3 H RBC 4.14 L Hgb 13.0 Hct 39.1 MCV 94.4 MCH 31.4 MCHC 33.2 RDW 12.7 RDW Differential 44.0 H Plt Count 214 MPV 10.5 Immature Gran % (Auto) 0.400 Neut % (Auto) 78.1 H Lymph % (Auto) 13.8 L [place] % (Auto) 7.0 Eos % (Auto) 0.3 Baso % (Auto) 0.4 Absolute Neuts (auto) 8.9 H Absolute Lymphs (auto) 1.56 Total Counted Not Reportable Sodium 134 L Potassium 3.8 Chloride 97 L Carbon Dioxide 7.0 L* Anion Gap 30 H BUN 17 Creatinine 1.24 H Estim Creat Clear Calc 48.86 Est GFR (MDRD) Af Amer 58 L Est GFR (MDRD) Non-Af 48 L BUN/Creatinine Ratio 13.7 Glucose 508 H* Calcium 9.4 Troponin I 0.019 Acetone Level MODERATE H POC Glucose 11/16/18 10:10 POC Glucose 490 H* Diagnostic Data Chest X-Ray 11/16/18 09:42 IMPRESSION: No acute abnormality is seen. Electronically Signed: Kermit Jackson, at 10:11 EDT , Service support , Assessment/Plan All Active Problems (Last Updated 11/13/18 @ 07:36 by Kana Brannon MD) DKA (diabetic ketoacidosis) (Acute) 58 y/o female admitted with a complaint of nausea and vomiting. 1. DKA in a known type 1 diabetic * precipitant of DKA is not clear as patient has been compliant with her meds * initial troponin negative, UA negative, no evidence of infection on the CXR * anion gap is 30, with bicarb of 7 on admission. Na is 134 and K was 3.8; had moderate acetone in blood * admit to ICU * continue insulin drip * hydrate with IVF as per DKA protocol * switch to D% NS once blood sugar is <250 * consult fire prevention engineer * BMP q4hrly; accuchecks q1hrly * cycle troponins * of note, blood cultures done on 11/13/18 during previous admission were still pending. Hospitalist called lab to follow-up and they said it was negative. * * 2. SIRS criteria: * patient had positive SIRS criteria of 2/4 (tachycardia, tachypnea), but there is no source of infection. * This is likely due to DKA and not due to an infection. * Will monitor and hold off on antibiotics for now * 3.COPD: on advair. breathing treatments DVT prophylaxis: lovenox Code Visit Inpatient E&M: 52730 Subs Hosp L3
--- NOTE | 2018-11-16 10:37 | ED.VISSUMM ---
- ER Visit Summary Date of Service: 11/16/18 Chief Complaint: High blood sugars History of Present Illness: The patient is a 58 F with a history of type 1 diabetes. She presents with what she believes is DKA. She is vomiting. She says she took her insulin today. She took 8 units and then 10 units of Humalog. She also took her long-acting insulin. Her sugars have still been high. She was recently admitted to the ICU for DKA. She denies fevers or any infectious symptoms. Denies any other issues. She is not sure why she is in DKA because she has been compliant. Physical Examination: Afebrile vital signs unremarkable except for a heart rate of 110. The patient is actively vomiting. She appears uncomfortable. Dry mucous membranes. Heart tachycardic but regular. Lungs clear. Abdomen soft and nontender. No guarding or rebound. No distention. Skin unremarkable. Test Results: EKG showed sinus rhythm at a rate of 109. Chest x-ray showed nothing acute. White count 11.3. Glucose 508, 21.24, CO2 7.0, anion gap 30. VBG showed a pH of 7.144, PCO2 13. Urinalysis pending. Troponin normal. Ketones moderate. Emergency Department Course and Treatment: Patient was placed on a monitor. EKG was done. IV access obtained and fluid resuscitation was started. Work-up indicated DKA. She was started on insulin drip. Fluid hydration is continuing. Hospitalist was contacted. Requested ABG. Results are pending. Urinalysis pending. Patient will be admitted to the ICU for further care. Treatment Plan: As above Disposition: Admission to ICU Impression: 1. DKA This note was generated with [employer] dictation software. It may contain incorrect words, spelling, and punctuation that were not noted in review of the chart prior to signing ED Disposition - Plan for ED Patient: Referrals: Trev Guaman,Out of [Primary Care Provider] -
--- NOTE | 2018-11-16 10:45 | CPS ---
attempted abg stick, pt kept jerking arm away from RT. Pt refused to be stuck again. Dr. Bowers notified, Dr. Charito de jesus.
--- NOTE | 2018-11-16 10:59 | CASEMGMT ---
RN CM Assessment Introduced role of RN CM to patient and patient father Dave at bedside.? Patient is alert, oriented and able?to participate in RN CM Assessment, however ill appearing. ?Care providers, pharmacy, and demographics verified. Patient was recently admitted for same 11/13-11/14/18. Verified from Previous CM assessment nothing has changed. Presentation: Vomiting, Believes DKA, H/o Type 1 diabetes. Confirmed patient did receive her Glucometer in the mail and has been compliant with taking medications. States compliant with her eating and denies eating anything that would cause elevation in her Blood Sugar. Denies any s/s illness since leaving the hospital that would cause increase in Blood Sugar. Admit Dx: DKA Re-Admit: Yes, 11/13-11/14/18 for DKA Barriers/Issues: Patient lives in [place]. Visiting her father who lives in [place]. States that her PCP has been handling her Diabetes. PCP: Dr. Maria Alejandra Andrea [address], [place] [id number] Specialists: None Preferred Pharmacy: [facility] Insurance: [place] [employer] Benefit: Yes? LNOK: Father Dave Polanco. Patient in [place]. Living Arrangements:? Lives with her in [place], address confirmed, denies any steps to enter. Patient plans to DC back to her father's house, address on demographics confirmed, 2 steps to enter father's home. ADL?s: Independent with ambulation and ADLs Transportation: Patient drives, Dc with Father DME: Glucometer HHC: None SNF: None Goal: Home, does not think will have any needs, denies questions/concerns. Aware CM remains available for any emerging needs. Patient father states has some questions for the ER Dr, ER Dr not at MD station- CM relayed to primary nurse that patient c/o nausea and Father would like to s/w the doctor. DC PLAN: Home, No anticipated needs identified at this time. SPENCER Bowser
[2018-11-16 11:11] LABS: Bedside Glucose > 500 mg/dL (70-110)
[2018-11-16] MEDS: proMETHazine 25 MG/ML Syringe 6.25 MG IV (11:11)
[2018-11-16 12:20] LABS: Bedside Glucose 352 mg/dL (70-110)
[2018-11-16 13:45] LABS: Anion Gap 24 (5-15); BUN 17 mg/dL (7-18); BUN/Creat Ratio 15.9 RATIO (10-20); Calcium,Total 7.5 mg/dL (8.5-10.1); Chloride 110 mmol/L (98-107); Creatinine, Serum 1.07 mg/dL (0.55-1.02); EST Glomerular Filtration Rate 56 mL/min (>60); Est Glom Filt Rate - Afr Amer 68 mL/min (>60); Estimated Creatinine Clearance 55.61 ml/min; Glucose 333 mg/dL (74-106); Sodium Level 142 mmol/L (136-145)
[2018-11-16 13:55] LABS: Bacteria 0 SEEN /hpf (None Seen); Mucous, Urine 0 SEEN /hpf (<or=2+); White Blood Cells 0 SEEN /hpf (0-5)
[2018-11-16 14:04] LABS: Color, Urine Yellow (Yellow); Glucose, Dipstick 250 mg/dl (Normal); Leukocyte Esterase-Dipstick Negative /ul (Negative); Nitrite-Dipstick Negative (Negative); Occult Blood-Urine 25 /ul (Negative); Protein-Dipstick 30 mg/dl (Negative); Specific Gravity, Urine 1.015 (1.002-1.030); Urine Bilirubin Dipstick Negative (Negative); Urine Clarity Clear (Clear); Urine Urobilinogen Normal (Normal)
[2018-11-16 14:06] LABS: Bedside Glucose 314 mg/dL (70-110)
[2018-11-16 14:06] LABS: Ketone-Dipstick 150 mg/dl (Negative)
[2018-11-16] MEDS: 0.9% Normal Saline 1,000 ML 500 ML IV (14:08)
[2018-11-16 14:09] LABS: Red Blood Cells-Urine 0-5 SEEN /hpf (0-5); Squamous Epithelial Cells - UA 0-5 SEEN /hpf (5-10)
--- NOTE | 2018-11-16 14:09 | PCM.CON.CC ---
Problem List (1) Type 1 diabetes mellitus Status: Chronic Qualifiers: Diabetes mellitus complication status: with ketoacidosis Diabetes mellitus complication detail: without coma Qualified Code(s): E10.10 - Type 1 diabetes mellitus with ketoacidosis without coma (2) DKA (diabetic ketoacidosis) Status: Acute Qualifiers: Diabetes mellitus type: type 1 Diabetes mellitus complication detail: without coma Qualified Code(s): E10.10 - Type 1 diabetes mellitus with ketoacidosis without coma (3) CAD (coronary artery disease) Status: Chronic Qualifiers: Coronary Disease-Associated Artery/Lesion type: [place] artery [place] vs. transplanted heart: [place] heart Associated angina: without angina Qualified Code(s): I25.10 - Atherosclerotic heart disease of [place] coronary artery without angina pectoris (4) Hypertension Status: Chronic Qualifiers: Hypertension type: essential hypertension Qualified Code(s): I10 - Essential (primary) hypertension (5) Tobacco abuse Status: Chronic (6) IBS (irritable bowel syndrome) Status: Chronic Qualifiers: Irritable bowel syndrome type: with both diarrhea and constipation Qualified Code(s): K58.2 - Mixed irritable bowel syndrome Reason for Consult Date of Consultation: 11/16/18 Reason for Consultation: DKA History of Present Illness: The patient is a 58 year old F, with past medical history listed below and well-known to me from a recent admission, who presented to [facility] on 11/16/2018 secondary to nausea, vomiting and a funny sensation in her mouth. Patient was admitted earlier this week with DKA and no significant change in history was reported. Patient reportedly was discharged and felt fine. Patient started to have elevated blood sugars yesterday. Patient states that she tried to treat with doses of Humalog. Patient did state that she was compliant with her Lantus overnight. Upon waking this morning, patient reported that she started to have blood sugars over 300. Patient attempted additional insulin doses, but then came to the ER for evaluation. In the emergency room, patient was noted to have a leukocytosis of 11.3, glucose 508 and a bicarb of 7 leading to a anion gap of 30. Venous blood gas showed a pH of 7.144. Patient was admitted to the intensive care unit and placed on insulin drip. Patient has been on the DKA protocol. Patient reports significant improvement in overall condition with aggressive fluid resuscitation. Patient states that she is never had this problem before. Patient did not have any nausea vomiting or diarrhea prior to elevated blood sugars. Review of systems are otherwise unremarkable. Past Medical History Past Medical History (Chronic Problems): Chronic Problems (Last Updated 11/13/18 @ 07:36 by Kana Brannon MD) Type 1 diabetes mellitus (Chronic) CAD (coronary artery disease) (Chronic) Hypertension (Chronic) Tobacco abuse (Chronic) IBS (irritable bowel syndrome) (Chronic) Medical History: Medical History (Last Updated 11/13/18 @ 07:36 by Kana Brannon MD) Coronary artery disease I25.10 HTN (hypertension) I10 Allergies Penicillins Adverse Reaction (Verified 11/16/18 09:31) Itching Home Medications: Ambulatory Orders Medication Instructions Recorded ALPRAZolam [Xanax] 0.5 mg PO BID PRN PRN 11/13/18 Fluticasone/Salmeterol [Advair 1 ea IH DAILY PRN 11/13/18 250-50 Diskus] Insulin Glargine,Hum.rec.anlog 25 unit SQ BID 11/13/18 [Lantus] Insulin Lispro [Humalog KwikPen] 18 unit SUBCUT TIDAC 11/16/18 Surgical History: - - Shoulder surgery Smoking Status: Former smoker - *Family History Maternal History Items: - - Patient does not know. Paternal History Items: Diabetes Review of Systems Comment: See HPI Objective: Chest x-ray was personally reviewed and shows no acute infiltrate. - Physical Exam General: Alert, Oriented x3, Cooperative, No apparent distress, Well developed, Well nourished, - - Appears older than stated age. HEENT: Atraumatic, PERRLA, EOMI, Normocephalic, - - No scleral icterus or injection noted. Oral: Moist Mucosa, No Gingival or Mucosal Lesions/ Ulcerations Neck: Supple, No JVD, No Nodes, Trachea Midline Lungs: Clear to auscultation, Normal air movement, No rhonchi, No wheeze, No rales Cardiovascular: Normal S1, Normal S2, No murmurs, No rub noted, No Gallop, Tachycardic Abdomen: Bowel Sounds Present, Soft, Non Tender, Non-Distended Extremities: No clubbing, No cyanosis, No edema, Capillary Refill Less than 3 Seconds Skin: No rashes, No breakdown Musculoskeletal: No Tenderness to Palpation of Joints or Extremities Lymphatic: No Cervical, Supraclavicular, or Inguinal Adenopathy Neurological: Cranial nerves II-XII grossly intact, Neuro grossly intact, Motor Exam 5/5 strength throughout Psych/Mental Status: Alert and oriented to time, place, person, mood and affect Vital Signs Temp Pulse Resp BP Pulse Ox 36.8 C 112 H 24 H 176/67 H 100 11/16/18 11:27 11/16/18 12:00 11/16/18 12:00 11/16/18 12:00 11/16/18 12:00 Oxygen Delivery Method Room Air Weight: 60 kg Body Mass Index (BMI) 20.7 Finger Stick Blood Glucose 352 Laboratory Tests Past 24 Hrs 11/16/18 11/16/18 11/16/18 09:53 09:53 09:53 WBC 11.3 H RBC 4.14 L Hgb 13.0 Hct 39.1 MCV 94.4 MCH 31.4 MCHC 33.2 RDW 12.7 RDW Differential 44.0 H Plt Count 214 MPV 10.5 Immature Gran % (Auto) 0.400 Neut % (Auto) 78.1 H Lymph % (Auto) 13.8 L [place] % (Auto) 7.0 Eos % (Auto) 0.3 Baso % (Auto) 0.4 Absolute Neuts (auto) 8.9 H Absolute Lymphs (auto) 1.56 Total Counted Not Reportable Sodium 134 L Potassium 3.8 Chloride 97 L Carbon Dioxide 7.0 L* Anion Gap 30 H BUN 17 Creatinine 1.24 H Estim Creat Clear Calc 48.86 Est GFR (MDRD) Af Amer 58 L Est GFR (MDRD) Non-Af 48 L BUN/Creatinine Ratio 13.7 Glucose 508 H* Calcium 9.4 Troponin I 0.019 Urine Color Urine Clarity Urine pH Ur Specific [place] Urine Protein Urine Glucose (UA) Urine Ketones Urine Occult Blood Urine Nitrite Urine Bilirubin Urine Urobilinogen Ur Leukocyte Esterase Urine RBC Urine WBC Ur Squamous Epith Cells Urine Bacteria Urine Mucus Acetone Level MODERATE H 11/16/18 11/16/18 11/16/18 13:00 13:00 13:45 WBC RBC Hgb Hct MCV MCH MCHC RDW RDW Differential Plt Count MPV Immature Gran % (Auto) Neut % (Auto) Lymph % (Auto) [place] % (Auto) Eos % (Auto) Baso % (Auto) Absolute Neuts (auto) Absolute Lymphs (auto) Total Counted Sodium 142 Potassium 3.0 L Chloride 110 H Carbon Dioxide 8.0 L* Anion Gap 24 H BUN 17 Creatinine 1.07 H Estim Creat Clear Calc 55.61 Est GFR (MDRD) Af Amer 68 Est GFR (MDRD) Non-Af 56 L BUN/Creatinine Ratio 15.9 Glucose 333 H Calcium 7.5 L Troponin I Cancelled 0.018 Urine Color Yellow Urine Clarity Clear Urine pH 5.0 Ur Specific [place] 1.015 Urine Protein 30 H Urine Glucose (UA) 250 H Urine Ketones 150 H Urine Occult Blood 25 H Urine Nitrite Negative Urine Bilirubin Negative Urine Urobilinogen Normal Ur Leukocyte Esterase Negative Urine RBC Pending Urine WBC Pending Ur Squamous Epith Cells Pending Urine Bacteria Pending Urine Mucus Pending Acetone Level POC Glucose 11/16/18 11/16/18 11/16/18 12:59 12:08 11:03 POC Glucose 314 H 352 H > 500 H* 11/16/18 10:10 POC Glucose 490 H* Clinical Impression(s) from Imaging Studies Chest X-Ray 11/16/18 09:42 IMPRESSION: No acute abnormality is seen. Electronically Signed: Kermit Jackson, at 10:11 EDT , Service support , Assessment/Plan RECOMMENDATIONS: 1. Continue aggressive fluid resuscitation 2. Insulin drip per DKA protocol 3. Symptomatic treatment of nausea and vomiting 4. Monitor for signs and symptoms of withdrawal IMPRESSIONS: 1. Acute DKA in the setting of poorly controlled type 1 diabetes mellitus Exact etiology is unclear at this time. Clinical suspicion for noncompliance with insulin therapy leading to repeat DKA, but this cannot be verified. Patient is reporting using insulin as instructed. Will continue with DKA protocol for now. No signs or symptoms of secondary cause that I can tell. Will attempt to contact pharmacy and see if insulin was filled. 2. Possible acute gastroenteritis versus irritable bowel disease flare Patient does have a history of drinking, so chronic pancreatitis would also be a consideration. Patient was ruled out for GI etiology during last admission. 3. Coronary artery disease status post stents/possible alcoholism/tobacco abuse/poor historian Complicates care, management, recovery and prognosis. We will have to monitor for signs and symptoms of withdrawal and treat accordingly. Okay to resume aspirin and Plavix once patient is able to take p.o. from my perspective. Patient is being monitored with telemetry. Code Visit Inpatient E&M: 66568 Init Hosp L2
[2018-11-16 14:11] LABS: Bedside Glucose 280 mg/dL (70-110)
--- NOTE | 2018-11-16 15:13 | CASEMGMT ---
T[facility] CM Readmission Note. Previous Admission:11/13/18-11/14/18 Diagnosis: DKA. DC Disposition: Father's Home locally. Pt is from [place] visiting. Readmission Date: 11/16/18 Diagnosis: DKA Intro role of CM to patient in room. States she had BS monitoring equipment, insulin for home and still has supplies. States she was compliant with diabetic regimen. No change in dc plan. Pt from [place] and will be returning there on dc and will f/u with her physician. Lovely RAMN RN ACM
[2018-11-16 15:26] LABS: Bedside Glucose 240 mg/dL (70-110)
[2018-11-16] MEDS: Dext 5%-0.45% NS 1,000 ML 150 ML IV ×2 (15:30→22:37)
[2018-11-16 16:06] LABS: Bedside Glucose 228 mg/dL (70-110)
[2018-11-16 17:00] LABS: Bedside Glucose 217 mg/dL (70-110)
[2018-11-16 18:16] LABS: Bedside Glucose 230 mg/dL (70-110)
[2018-11-16 19:01] LABS: Bedside Glucose 188 mg/dL (70-110)
[2018-11-16 21:35] LABS: Anion Gap 7 (5-15); BUN 11 mg/dL (7-18); BUN/Creat Ratio 10.4 RATIO (10-20); Calcium,Total 7.5 mg/dL (8.5-10.1); Chloride 114 mmol/L (98-107); Creatinine, Serum 1.06 mg/dL (0.55-1.02); EST Glomerular Filtration Rate 57 mL/min (>60); Est Glom Filt Rate - Afr Amer 69 mL/min (>60); Estimated Creatinine Clearance 56.13 ml/min; Glucose 169 mg/dL (74-106); Sodium Level 142 mmol/L (136-145)
[2018-11-16 21:40] LABS: Bedside Glucose 153 mg/dL (70-110)
[2018-11-16 22:07] LABS: Magnesium 1.3 mg/dL (1.6-2.6)
[2018-11-16 22:13] LABS: Albumin, Serum 2.5 g/dL (3.2-5.0)
[2018-11-16] MEDS: traZODone 50 MG Tablet PO (22:29)
[2018-11-16] MEDS: Atorvastatin Calcium 80 MG Tablet PO (22:29)
[2018-11-16] MEDS: 0.9% NaCl Peripheral Flush Adult/Peds IV (22:30)
[2018-11-16] MEDS: Magnesium Sulfate 4gm/100mL 4 GM/100 ML IV.SOLN. IV (23:05)
[2018-11-17] VITALS (19 sets, daily range): BP systolic 128–173; BP diastolic 45–80; PULSE 87–109; RESP 16–25; TEMP 36.6–37.2; O2SAT 96–100
[2018-11-17 04:27] LABS: Absolute Lymphocyte Count 2.96 X10^3/ul (0.83-4.51); Absolute Neutrophil Count 6.9 X10^3/uL (2.0-7.7); Basophil# 0.03 X10^3/uL; Basophil% 0.3 % (0-1); Eosinophil# 0.15 X10^3/uL; Eosinophils% 1.4 % (0-5); Hematocrit 32.2 % (37-47); Hemoglobin 11.1 g/dl (12.0-15.0); Lymphocyte # 2.96 X10^3/ul (4.0); Lymphocyte % 27.3 % (19-41); Mean Corp Hgb Conc 34.5 g/gl (32-36); Mean Corpuscular Hgb 31.1 pg (27.0-32.0); Mean Corpuscular Volume 90.2 fL (81-99); Mean Platelet Vol. 9.7 fl (6.2-12.0); Monocyte# 0.78 X10^3/uL; Monocyte% 7.2 % (0-10); Neutrophil # 6.89 X10^3/uL (2.7-7.7); Neutrophil % 63.6 % (47-70); POSITIVE COUNT NO; POSITIVE DIFFERENTIAL NO; POSITIVE MORPHOLOGY NO; Platelet Count 192 K/mm3 (150-450); RBC Distribution Width CV 12.4 % (11.6-14.6); Red Blood Count 3.57 M/mm3 (4.2-5.4); White Blood Count 10.8 K/mm3 (4.4-11.0)
[2018-11-17 04:36] LABS: Anion Gap 14 (5-15); BUN 9 mg/dL (7-18); BUN/Creat Ratio 10.3 RATIO (10-20); Chloride 113 mmol/L (98-107); Creatinine, Serum 0.87 mg/dL (0.55-1.02); EST Glomerular Filtration Rate 71 mL/min (>60); Est Glom Filt Rate - Afr Amer 86 mL/min (>60); Estimated Creatinine Clearance 68.39 ml/min; Glucose 194 mg/dL (74-106); Magnesium 2.6 mg/dL (1.6-2.6); Potassium 3.9 mmol/L (3.5-5.1); Sodium Level 142 mmol/L (136-145)
[2018-11-17 06:06] LABS: Blood Gas Specimen Type VEN; O2 Delivery Device Room Air; Time Given 1010; VBG BASE EXCESS -24 mmol/L (-1.0-3.5); VBG Bicarbonate 5 mmol/L (22-26); VBG Oxygen Content < 5 mmol/L (23-33); VBG PO2 47 mmHg (25-40); VBG SO2 71 % (50-70); VBG pCO2 13.1 mmHg (41-51); VBG pH 7.14 (7.32-7.42)
[2018-11-17 07:16] LABS: Bedside Glucose 170 mg/dL (70-110)
--- NOTE | 2018-11-17 07:21 | PN_ITS ---
Subjective: Patient doing well this morning. Patient is back to her baseline with no complaints. Patient taken off the insulin drip overnight and has tolerated p.o. intake. Patient is on room air and has no complaints at this time. General: Alert, Oriented x3, Cooperative, No apparent distress, Well developed, Well nourished, - - No conversational dyspnea. HEENT: Atraumatic, PERRLA, EOMI, Normocephalic, - - No scleral icterus or injection noted Oral: Moist Mucosa, No Gingival or Mucosal Lesions/ Ulcerations Neck: Supple, No JVD, No Nodes, Trachea Midline Lungs: Clear to auscultation, Normal air movement, No rhonchi, No wheeze, No rales Cardiovascular: Regular rate, Regular Rhythm, Normal S1, Normal S2, No murmurs, No rub noted, No Gallop Abdomen: Bowel Sounds Present, Soft, Non Tender, Non-Distended Extremities: No clubbing, No cyanosis, No edema Skin: No rashes, No breakdown Musculoskeletal: No Tenderness to Palpation of Joints or Extremities Lymphatic: No Cervical, Supraclavicular, or Inguinal Adenopathy Neurological: Cranial nerves II-XII grossly intact, Neuro grossly intact, Motor Exam 5/5 strength throughout Psych/Mental Status: Alert and oriented to time, place, person, mood and affect Vital Signs Temp Pulse Resp BP Pulse Ox 36.6 C 103 H 16 137/59 H 99 11/17/18 04:00 11/17/18 06:00 11/17/18 06:00 11/17/18 06:00 11/17/18 06:00 Oxygen Delivery Method Room Air Weight: 60.6 kg Body Mass Index (BMI) 20.7 Finger Stick Blood Glucose 188 Intake and Output for Last 24 Hours 11/15/18 11/16/18 11/17/18 23:59 23:59 23:59 Intake Total 5096 / 5096 150 / 150 Output Total 1025 / 1025 300 / 300 Balance 4071 / 4071 -150 / -150 Labs (Last 48 Hours) 11/16/18 11/16/18 11/16/18 09:53 09:53 09:53 WBC 11.3 H RBC 4.14 L Hgb 13.0 Hct 39.1 MCV 94.4 MCH 31.4 MCHC 33.2 RDW 12.7 RDW Differential 44.0 H Plt Count 214 MPV 10.5 Immature Gran % (Auto) 0.400 Neut % (Auto) 78.1 H Lymph % (Auto) 13.[address] % (Auto) 7.0 Eos % (Auto) 0.3 Baso % (Auto) 0.4 Absolute Neuts (auto) 8.9 H Absolute Lymphs (auto) 1.56 Total Counted Not Reportable Specimen Type VBG pH VBG pO2 VBG O2 Sat (Calc) VBG O2 Content VBG Base Excess POC Mix VBG pCO2 Pt Tmp O2 Delivery Device Blood Gas Notified Whom Blood Gas Notified Time Sodium 134 L Potassium 3.8 Chloride 97 L Carbon Dioxide 7.0 L* Anion Gap 30 H BUN 17 Creatinine 1.24 H Estim Creat Clear Calc 48.86 Est GFR (MDRD) Af Amer 58 L Est GFR (MDRD) Non-Af 48 L BUN/Creatinine Ratio 13.7 Glucose 508 H* Calcium 9.4 Magnesium Troponin I 0.019 Albumin Urine Color Urine Clarity Urine pH Ur Specific [place] Urine Protein Urine Glucose (UA) Urine Ketones Urine Occult Blood Urine Nitrite Urine Bilirubin Urine Urobilinogen Ur Leukocyte Esterase Urine RBC Urine WBC Ur Squamous Epith Cells Urine Bacteria Urine Mucus Acetone Level MODERATE H POC Glucose 11/16/18 11/16/18 11/16/18 10:10 10:12 11:03 WBC RBC Hgb Hct MCV MCH MCHC RDW RDW Differential Plt Count MPV Immature Gran % (Auto) Neut % (Auto) Lymph % (Auto) [place] % (Auto) Eos % (Auto) Baso % (Auto) Absolute Neuts (auto) Absolute Lymphs (auto) Total Counted Specimen Type BOBBY VBG pH 7.14 L* VBG pO2 47 H VBG O2 Sat (Calc) 71 H VBG O2 Content < 5 L VBG Base Excess -24 L POC Mix VBG pCO2 Pt Tmp 13.1 L* O2 Delivery Device Room Air Blood Gas Notified Whom ED Blood Gas Notified Time 1010 Sodium Potassium Chloride Carbon Dioxide Anion Gap BUN Creatinine Estim Creat Clear Calc Est GFR (MDRD) Af Amer Est GFR (MDRD) Non-Af BUN/Creatinine Ratio Glucose Calcium Magnesium Troponin I Albumin Urine Color Urine Clarity Urine pH Ur Specific [place] Urine Protein Urine Glucose (UA) Urine Ketones Urine Occult Blood Urine Nitrite Urine Bilirubin Urine Urobilinogen Ur Leukocyte Esterase Urine RBC Urine WBC Ur Squamous Epith Cells Urine Bacteria Urine Mucus Acetone Level POC Glucose 490 H* > 500 H* 11/16/18 11/16/18 11/16/18 12:08 12:59 13:00 WBC RBC Hgb Hct MCV MCH MCHC RDW RDW Differential Plt Count MPV Immature Gran % (Auto) Neut % (Auto) Lymph % (Auto) [place] % (Auto) Eos % (Auto) Baso % (Auto) Absolute Neuts (auto) Absolute Lymphs (auto) Total Counted Specimen Type VBG pH VBG pO2 VBG O2 Sat (Calc) VBG O2 Content VBG Base Excess POC Mix VBG pCO2 Pt Tmp O2 Delivery Device Blood Gas Notified Whom Blood Gas Notified Time Sodium Potassium Chloride Carbon Dioxide Anion Gap BUN Creatinine Estim Creat Clear Calc Est GFR (MDRD) Af Amer Est GFR (MDRD) Non-Af BUN/Creatinine Ratio Glucose Calcium Magnesium Troponin I Cancelled Albumin Urine Color Urine Clarity Urine pH Ur Specific [place] Urine Protein Urine Glucose (UA) Urine Ketones Urine Occult Blood Urine Nitrite Urine Bilirubin Urine Urobilinogen Ur Leukocyte Esterase Urine RBC Urine WBC Ur Squamous Epith Cells Urine Bacteria Urine Mucus Acetone Level POC Glucose 352 H 314 H 11/16/18 11/16/18 11/16/18 13:00 13:45 14:04 WBC RBC Hgb Hct MCV MCH MCHC RDW RDW Differential Plt Count MPV Immature Gran % (Auto) Neut % (Auto) Lymph % (Auto) [place] % (Auto) Eos % (Auto) Baso % (Auto) Absolute Neuts (auto) Absolute Lymphs (auto) Total Counted Specimen Type VBG pH VBG pO2 VBG O2 Sat (Calc) VBG O2 Content VBG Base Excess POC Mix VBG pCO2 Pt Tmp O2 Delivery Device Blood Gas Notified Whom Blood Gas Notified Time Sodium 142 Potassium 3.0 L Chloride 110 H Carbon Dioxide 8.0 L* Anion Gap 24 H BUN 17 Creatinine 1.07 H Estim Creat Clear Calc 55.61 Est GFR (MDRD) Af Amer 68 Est GFR (MDRD) Non-Af 56 L BUN/Creatinine Ratio 15.9 Glucose 333 H Calcium 7.5 L Magnesium Troponin I 0.018 Albumin Urine Color Yellow Urine Clarity Clear Urine pH 5.0 Ur Specific [place] 1.015 Urine Protein 30 H Urine Glucose (UA) 250 H Urine Ketones 150 H Urine Occult Blood 25 H Urine Nitrite Negative Urine Bilirubin Negative Urine Urobilinogen Normal Ur Leukocyte Esterase Negative Urine RBC 0-5 SEEN Urine WBC 0 SEEN Ur Squamous Epith Cells 0-5 SEEN Urine Bacteria 0 SEEN Urine Mucus 0 SEEN Acetone Level POC Glucose 280 H 11/16/18 11/16/18 11/16/18 15:19 16:00 16:58 WBC RBC Hgb Hct MCV MCH MCHC RDW RDW Differential Plt Count MPV Immature Gran % (Auto) Neut % (Auto) Lymph % (Auto) [place] % (Auto) Eos % (Auto) Baso % (Auto) Absolute Neuts (auto) Absolute Lymphs (auto) Total Counted Specimen Type VBG pH VBG pO2 VBG O2 Sat (Calc) VBG O2 Content VBG Base Excess POC Mix VBG pCO2 Pt Tmp O2 Delivery Device Blood Gas Notified Whom Blood Gas Notified Time Sodium Potassium Chloride Carbon Dioxide Anion Gap BUN Creatinine Estim Creat Clear Calc Est GFR (MDRD) Af Amer Est GFR (MDRD) Non-Af BUN/Creatinine Ratio Glucose Calcium Magnesium Troponin I Albumin Urine Color Urine Clarity Urine pH Ur Specific [place] Urine Protein Urine Glucose (UA) Urine Ketones Urine Occult Blood Urine Nitrite Urine Bilirubin Urine Urobilinogen Ur Leukocyte Esterase Urine RBC Urine WBC Ur Squamous Epith Cells Urine Bacteria Urine Mucus Acetone Level POC Glucose 240 H 228 H 217 H 11/16/18 11/16/18 11/16/18 18:03 18:57 20:20 WBC RBC Hgb Hct MCV MCH MCHC RDW RDW Differential Plt Count MPV Immature Gran % (Auto) Neut % (Auto) Lymph % (Auto) [place] % (Auto) Eos % (Auto) Baso % (Auto) Absolute Neuts (auto) Absolute Lymphs (auto) Total Counted Specimen Type VBG pH VBG pO2 VBG O2 Sat (Calc) VBG O2 Content VBG Base Excess POC Mix VBG pCO2 Pt Tmp O2 Delivery Device Blood Gas Notified Whom Blood Gas Notified Time Sodium Cancelled Potassium Cancelled Chloride Cancelled Carbon Dioxide Cancelled Anion Gap Cancelled BUN Cancelled Creatinine Cancelled Estim Creat Clear Calc Cancelled Est GFR (MDRD) Af Amer Cancelled Est GFR (MDRD) Non-Af Cancelled BUN/Creatinine Ratio Cancelled Glucose Cancelled Calcium Cancelled Magnesium Troponin I Albumin Urine Color Urine Clarity Urine pH Ur Specific [place] Urine Protein Urine Glucose (UA) Urine Ketones Urine Occult Blood Urine Nitrite Urine Bilirubin Urine Urobilinogen Ur Leukocyte Esterase Urine RBC Urine WBC Ur Squamous Epith Cells Urine Bacteria Urine Mucus Acetone Level POC Glucose 230 H 188 H 11/16/18 11/16/18 11/16/18 20:32 21:07 21:36 WBC RBC Hgb Hct MCV MCH MCHC RDW RDW Differential Plt Count MPV Immature Gran % (Auto) Neut % (Auto) Lymph % (Auto) [place] % (Auto) Eos % (Auto) Baso % (Auto) Absolute Neuts (auto) Absolute Lymphs (auto) Total Counted Specimen Type VBG pH VBG pO2 VBG O2 Sat (Calc) VBG O2 Content VBG Base Excess POC Mix VBG pCO2 Pt Tmp O2 Delivery Device Blood Gas Notified Whom Blood Gas Notified Time Sodium 142 Potassium 3.0 L Chloride 114 H Carbon Dioxide 21.0 Anion Gap 7 BUN 11 Creatinine 1.06 H Estim Creat Clear Calc 56.13 Est GFR (MDRD) Af Amer 69 Est GFR (MDRD) Non-Af 57 L BUN/Creatinine Ratio 10.4 Glucose 169 H Calcium 7.5 L Magnesium Troponin I Albumin Urine Color Urine Clarity Urine pH Ur Specific [place] Urine Protein Urine Glucose (UA) Urine Ketones Urine Occult Blood Urine Nitrite Urine Bilirubin Urine Urobilinogen Ur Leukocyte Esterase Urine RBC Urine WBC Ur Squamous Epith Cells Urine Bacteria Urine Mucus Acetone Level POC Glucose 170 H 153 H 11/16/18 11/16/18 11/17/18 21:53 21:58 04:10 WBC RBC Hgb Hct MCV MCH MCHC RDW RDW Differential Plt Count MPV Immature Gran % (Auto) Neut % (Auto) Lymph % (Auto) [place] % (Auto) Eos % (Auto) Baso % (Auto) Absolute Neuts (auto) Absolute Lymphs (auto) Total Counted Specimen Type VBG pH VBG pO2 VBG O2 Sat (Calc) VBG O2 Content VBG Base Excess POC Mix VBG pCO2 Pt Tmp O2 Delivery Device Blood Gas Notified Whom Blood Gas Notified Time Sodium 142 Potassium 3.9 Chloride 113 H Carbon Dioxide 15.0 L Anion Gap 14 BUN 9 Creatinine 0.87 Estim Creat Clear Calc 68.39 Est GFR (MDRD) Af Amer 86 Est GFR (MDRD) Non-Af 71 BUN/Creatinine Ratio 10.3 Glucose 194 H Calcium 8.0 L Magnesium 1.3 L 2.6 Troponin I Albumin 2.5 L Urine Color Urine Clarity Urine pH Ur Specific [place] Urine Protein Urine Glucose (UA) Urine Ketones Urine Occult Blood Urine Nitrite Urine Bilirubin Urine Urobilinogen Ur Leukocyte Esterase Urine RBC Urine WBC Ur Squamous Epith Cells Urine Bacteria Urine Mucus Acetone Level POC Glucose 11/17/18 04:10 WBC 10.8 RBC 3.57 L Hgb 11.1 L Hct 32.2 L MCV 90.2 MCH 31.1 MCHC 34.5 RDW 12.4 RDW Differential 41.0 Plt Count 192 MPV 9.7 Immature Gran % (Auto) 0.200 Neut % (Auto) 63.6 Lymph % (Auto) 27.3 [place] % (Auto) 7.2 Eos % (Auto) 1.4 Baso % (Auto) 0.3 Absolute Neuts (auto) 6.9 Absolute Lymphs (auto) 2.96 Total Counted Not Reportable Specimen Type VBG pH VBG pO2 VBG O2 Sat (Calc) VBG O2 Content VBG Base Excess POC Mix VBG pCO2 Pt Tmp O2 Delivery Device Blood Gas Notified Whom Blood Gas Notified Time Sodium Potassium Chloride Carbon Dioxide Anion Gap BUN Creatinine Estim Creat Clear Calc Est GFR (MDRD) Af Amer Est GFR (MDRD) Non-Af BUN/Creatinine Ratio Glucose Calcium Magnesium Troponin I Albumin Urine Color Urine Clarity Urine pH Ur Specific [place] Urine Protein Urine Glucose (UA) Urine Ketones Urine Occult Blood Urine Nitrite Urine Bilirubin Urine Urobilinogen Ur Leukocyte Esterase Urine RBC Urine WBC Ur Squamous Epith Cells Urine Bacteria Urine Mucus Acetone Level POC Glucose Clinical Impression(s) from Imaging Studies Chest X-Ray 11/16/18 09:42 IMPRESSION: No acute abnormality is seen. Electronically Signed: Kermit Jackson, at 10:11 EDT , Service support , Medical Necessity - Tobacco Use Smoking Status: Former smoker Assessment/Plan All Active Problems (Last Updated 11/13/18 @ 07:36 by Kana Brannon MD) DKA (diabetic ketoacidosis) (Acute) RECOMMENDATIONS: 1. Discussed with case management about home supplies 2. Continue with sliding scale insulin and basal insulin as ordered 3. Hemodynamically stable on room air. Will sign off from a critical care perspective 4. Okay to resume home medications on discharge IMPRESSIONS: 1. Acute DKA in the setting of poorly controlled type 1 diabetes mellitus Exact etiology is unclear at this time. Clinical suspicion for noncompliance with insulin therapy leading to repeat DKA, but this cannot be verified. Patient is reporting using insulin as instructed. Patient has completed the DKA protocol and is currently at baseline. No signs or symptoms of secondary cause that I can tell. Hemodynamically stable on room air. Will sign off from a critical care perspective. 2. Possible acute gastroenteritis versus irritable bowel disease flare Patient does have a history of drinking, so chronic pancreatitis would also be a consideration. Patient was ruled out for GI etiology during last admission. 3. Coronary artery disease status post stents/possible alcoholism/tobacco abuse/poor historian Complicates care, management, recovery and prognosis. We will have to monitor for signs and symptoms of withdrawal and treat accordingly. Okay to resume aspirin and Plavix once patient is able to take p.o. from my perspective. Patient is being monitored with telemetry. Code Visit Inpatient E&M: [id number] Subs Hosp L2
[2018-11-17] MEDS: Insulin Lispro 100 UNIT/ML INSULN.PEN 18 UNIT SC ×2 (07:57→11:32)
[2018-11-17] MEDS: Enoxaparin 40 MG/0.4 ML Syringe SC (08:00)
[2018-11-17] MEDS: Citalopram 20 MG Tablet PO (08:00)
[2018-11-17] MEDS: Aspirin 325 MG Tablet PO (08:00)
[2018-11-17] MEDS: Famotidine 20 MG Tablet PO (08:00)
[2018-11-17 08:05] LABS: Bedside Glucose 348 mg/dL (70-110)
--- NOTE | 2018-11-17 08:59 | PN_ITS ---
Subjective: Patient seen and examined. She was admitted and managed for DKA. Gap is closed. Says he feels much better though she is still having some chills. She still does remain tachycardic and tachypneic. Anion gap is 14 today and bicarb was 15. Review of systems otherwise negative. Vitals/I&O's: Vital Signs Temp Pulse Resp BP Pulse Ox 98 F 107 H 25 H 146/50 H 100 11/17/18 04:00 11/17/18 08:00 11/17/18 08:00 11/17/18 08:00 11/17/18 08:00 Oxygen Delivery Method Room Air Weight: 133 lb 9.602 oz Body Mass Index (BMI) 20.7 Finger Stick Blood Glucose 188 Intake and Output for Last 24 Hours 11/15/18 11/16/18 11/17/18 23:59 23:59 23:59 Intake Total 5096 / 5096 150 / 150 Output Total 1025 / 1025 300 / 300 Balance 4071 / 4071 -150 / -150 General: Alert, Oriented x3, Cooperative HEENT: Atraumatic, PERRLA, EOMI, Normocephalic Oral: Dry Mucosa Neck: Supple, No JVD, Negative Carotid Bruits Lungs: Clear to auscultation, Normal air movement, No rhonchi, No wheeze, No rales Cardiovascular: Regular rate, Normal S1, Normal S2, No murmurs, Tachycardic Abdomen: Bowel Sounds Present, Soft, Non Tender, Non-Distended, No Hepato- splenomegaly Extremities: No clubbing, No cyanosis, No edema, Capillary Refill Less than 3 Seconds Skin: No rashes, No breakdown Musculoskeletal: No Tenderness to Palpation of Joints or Extremities Lymphatic: No Cervical, Supraclavicular, or Inguinal Adenopathy Neurological: Cranial nerves II-XII grossly intact, Neuro grossly intact, Motor Exam 5/5 strength throughout Psych/Mental Status: Normal Affect, Appropriate, Alert and oriented to time, place, person, mood and affect Laboratory Results 11/16/18 09:53: WBC 11.3 H, RBC 4.14 L, Hgb 13.0, Hct 39.1, MCV 94.4, MCH 31.4, MCHC 33.2, RDW 12.7, RDW Differential 44.0 H, Plt Count 214, MPV 10.5, Immature Gran % (Auto) 0.400, Neut % (Auto) 78.1 H, Lymph % (Auto) 13.8 L, [place] % (Auto) 7.0, Eos % (Auto) 0.3, Baso % (Auto) 0.4, Absolute Neuts (auto) 8.9 H, Absolute Lymphs (auto) 1.56, Total Counted Not Reportable 11/16/18 09:53: Sodium 134 L, Potassium 3.8, Chloride 97 L, Carbon Dioxide 7.0 L*, Anion Gap 30 H, BUN 17, Creatinine 1.24 H, Estim Creat Clear Calc 48.86, Est GFR (MDRD) Af Amer 58 L, Est GFR (MDRD) Non-Af 48 L, BUN/Creatinine Ratio 13.7, Glucose 508 H*, Calcium 9.4, Troponin I 0.019 11/16/18 09:53: Acetone Level MODERATE H 11/16/18 10:10: POC Glucose 490 H* 11/16/18 10:12: Specimen Type BOBBY, VBG pH 7.14 L*, VBG pO2 47 H, VBG O2 Sat (Calc) 71 H, VBG O2 Content < 5 L, VBG Base Excess -24 L, POC Mix VBG pCO2 Pt Tmp 13.1 L*, O2 Delivery Device Room Air, Blood Gas Notified Whom ED , Blood Gas Notified Time 1010 11/16/18 11:03: POC Glucose > 500 H* 11/16/18 12:08: POC Glucose 352 H 11/16/18 12:59: POC Glucose 314 H 11/16/18 13:00: Troponin I Cancelled 11/16/18 13:00: Sodium 142, Potassium 3.0 L, Chloride 110 H, Carbon Dioxide 8.0 L*, Anion Gap 24 H, BUN 17, Creatinine 1.07 H, Estim Creat Clear Calc 55.61, Est GFR (MDRD) Af Amer 68, Est GFR (MDRD) Non-Af 56 L, BUN/Creatinine Ratio 15.9, Glucose 333 H, Calcium 7.5 L, Troponin I 0.018 11/16/18 13:45: Urine Color Yellow, Urine Clarity Clear, Urine pH 5.0, Ur Specific [place] 1.015, Urine Protein 30 H, Urine Glucose (UA) 250 H, Urine Ketones 150 H, Urine Occult Blood 25 H, Urine Nitrite Negative, Urine Bilirubin Negative, Urine Urobilinogen Normal, Ur Leukocyte Esterase Negative, Urine RBC 0-5 SEEN, Urine WBC 0 SEEN, Ur Squamous Epith Cells 0-5 SEEN, Urine Bacteria 0 SEEN, Urine Mucus 0 SEEN 11/16/18 14:04: POC Glucose 280 H 11/16/18 15:19: POC Glucose 240 H 11/16/18 16:00: POC Glucose 228 H 11/16/18 16:58: POC Glucose 217 H 11/16/18 18:03: POC Glucose 230 H 11/16/18 18:57: POC Glucose 188 H 11/16/18 20:20: Sodium Cancelled, Potassium Cancelled, Chloride Cancelled, Carbon Dioxide Cancelled, Anion Gap Cancelled, BUN Cancelled, Creatinine Cancelled, Estim Creat Clear Calc Cancelled, Est GFR (MDRD) Af Amer Cancelled, Est GFR (MDRD) Non-Af Cancelled, BUN/Creatinine Ratio Cancelled, Glucose Cancelled, Calcium Cancelled 11/16/18 20:32: POC Glucose 170 H 11/16/18 21:07: Sodium 142, Potassium 3.0 L, Chloride 114 H, Carbon Dioxide 21.0, Anion Gap 7, BUN 11, Creatinine 1.06 H, Estim Creat Clear Calc 56.13, Est GFR (MDRD) Af Amer 69, Est GFR (MDRD) Non-Af 57 L, BUN/Creatinine Ratio 10.4, Glucose 169 H, Calcium 7.5 L 11/16/18 21:36: POC Glucose 153 H 11/16/18 21:53: Magnesium 1.3 L 11/16/18 21:58: Albumin 2.5 L 11/17/18 04:10: Sodium 142, Potassium 3.9, Chloride 113 H, Carbon Dioxide 15.0 L , Anion Gap 14, BUN 9, Creatinine 0.87, Estim Creat Clear Calc 68.39, Est GFR (MDRD) Af Amer 86, Est GFR (MDRD) Non-Af 71, BUN/Creatinine Ratio 10.3, Glucose 194 H, Calcium 8.0 L, Magnesium 2.6 11/17/18 04:10: WBC 10.8, RBC 3.57 L, Hgb 11.1 L, Hct 32.2 L, MCV 90.2, MCH 31.1, MCHC 34.5, RDW 12.4, RDW Differential 41.0, Plt Count 192, MPV 9.7, Immature Gran % (Auto) 0.200, Neut % (Auto) 63.6, Lymph % (Auto) 27.3, [place] % (Auto) 7.2, Eos % (Auto) 1.4, Baso % (Auto) 0.3, Absolute Neuts (auto) 6.9, Absolute Lymphs (auto) 2.96, Total Counted Not Reportable 11/17/18 07:57: POC Glucose 348 H Current Medications Albuterol Sulfate (Ventolin Aerosols) 2.5 mg INHALATION Q6H PRN PRN Aspirin (Aspirin) 325 mg PO DAILY@0800 [facility] Last Admin: 11/17/18 08:00 Dose: 325 mg Documented by: Atorvastatin Calcium (Lipitor) 80 mg PO QHS [facility] Last Admin: 11/16/18 22:29 Dose: 80 mg Documented by: Budesonide (Pulmicort Aerosol) 0.5 mg INHALATION Q12H PRN PRN PRN Reason: SOB/WHEEZING Citalopram Hydrobromide (Celexa) 20 mg PO DAILY [facility] Last Admin: 11/17/18 08:00 Dose: 20 mg Documented by: Dextrose (D50w Syringe) 0 gm IV X1 PRN; Protocol PRN Reason: HYPOGLYCEMIA Dextrose (D50w Syringe) 0 gm IV X1 PRN; Protocol PRN Reason: Hypoglycemia Enoxaparin Sodium (Lovenox) 40 mg SC DAILY@1000 [facility] Last Admin: 11/17/18 08:00 Dose: 40 mg Documented by: Famotidine (Pepcid) 20 mg PO DAILY [facility] Last Admin: 11/17/18 08:00 Dose: 20 mg Documented by: Glucagon () 1 mg IM .X1 PRN PRN Reason: Hypoglycemia Sodium Chloride () 1,000 mls @ 999 mls/hr IV .Q1H1M ONE Last Admin: 11/16/18 10:06 Dose: 999 mls/hr Documented by: Insulin Glargine (Lantus (Bkc)) 25 units SC 1000 [facility] Last Admin: 11/17/18 07:58 Dose: 25 u Documented by: Insulin Glargine (Lantus (Bkc)) 20 units SC 2200 [facility] Insulin Human Lispro (Humalog Kwikpen (Bkc)) 18 unit SC TIDAC [facility] Last Admin: 11/17/18 07:57 Dose: 18 u Documented by: Sodium Chloride () 10 - 40 ml IV UD PRN PRN Reason: SALINE FLUSH Last Admin: 11/16/18 22:30 Dose: 10 ml Documented by: Trazodone HCl (Desyrel) 50 mg PO QHS [facility] Last Admin: 11/16/18 22:29 Dose: 50 mg Documented by: Medical Necessity - Tobacco Use Smoking Status: Former smoker Assessment/Plan All Active Problems (Last Updated 11/13/18 @ 07:36 by Kana Brannon MD) DKA (diabetic ketoacidosis) (Acute) 58 y/o female admitted with a complaint of nausea and vomiting. 1. DKA in a known type 1 diabetic * gap has closed; anion gap is 14 this morning, bicarg is 15 * patient feels much better today * on insulin lantus 25IU in the morning and 20IU in the evening * on insulin humalog 18IU tid and ISS * accuchecks ACHS * troponins x 3 were negative, and blood cultures from 11/13/18 are negative. * certified mortician on board * * * 2. SIRS criteria: * still tachyardic and tachypneic; no source of infection. * likely systemic reaction to DKA * continue to monitor * 3.COPD: on advair. breathing treatments DVT prophylaxis: lovenox Code Visit Inpatient E&M: [id number] [facility] Hosp L3
[2018-11-17 11:40] LABS: Bedside Glucose 206 mg/dL (70-110)
--- NOTE | 2018-11-17 16:21 | NURSING ---
Pt bgt=68- 120cc OJ given and pt rechecked and was [address] Mcneill notified and ordered to hold this dose of kika 18 units humalog.
[2018-11-17 16:56] LABS: Bedside Glucose 68 mg/dL (70-110)
[2018-11-17 16:56] LABS: Bedside Glucose 72 mg/dL (70-110)
[2018-11-17] MEDS: Atorvastatin Calcium 80 MG Tablet PO (22:30)
[2018-11-17] MEDS: traZODone 50 MG Tablet PO (22:30)
[2018-11-17] MEDS: BACITRACIN 15 GM Tube 1 APPLIC TOPICAL (22:36)
[2018-11-17 22:46] LABS: Bedside Glucose 93 mg/dL (70-110)
[2018-11-18 04:08] VITALS: BP 165/68; PULSE 84; RESP 18; TEMP 36.7; O2SAT 100
[2018-11-18] MEDS: Lisinopril 20 MG Tablet PO (05:07)
[2018-11-18 07:12] LABS: Absolute Lymphocyte Count 2.21 X10^3/ul (0.83-4.51); Absolute Neutrophil Count 4.1 X10^3/uL (2.0-7.7); Basophil# 0.03 X10^3/uL; Basophil% 0.4 % (0-1); Eosinophil# 0.18 X10^3/uL; Eosinophils% 2.5 % (0-5); Hematocrit 33.2 % (37-47); Hemoglobin 11.9 g/dl (12.0-15.0); Lymphocyte # 2.21 X10^3/ul (4.0); Mean Corp Hgb Conc 35.8 g/gl (32-36); Mean Corpuscular Hgb 31.4 pg (27.0-32.0); Mean Corpuscular Volume 87.6 fL (81-99); Mean Platelet Vol. 10.1 fl (6.2-12.0); Monocyte# 0.55 X10^3/uL; Monocyte% 7.7 % (0-10); Neutrophil # 4.14 X10^3/uL (2.7-7.7); Neutrophil % 58.1 % (47-70); Platelet Count 225 K/mm3 (150-450); RBC Distribution Width SD 37.6 fl (35.1-43.9); Red Blood Count 3.79 M/mm3 (4.2-5.4); White Blood Count 7.1 K/mm3 (4.4-11.0)
[2018-11-18 07:13] LABS: POSITIVE COUNT NO; POSITIVE DIFFERENTIAL NO; POSITIVE MORPHOLOGY NO
[2018-11-18 07:23] LABS: Anion Gap 9 (5-15); BUN 7 mg/dL (7-18); BUN/Creat Ratio 9.7 RATIO (10-20); Calcium,Total 8.1 mg/dL (8.5-10.1); Chloride 112 mmol/L (98-107); Creatinine, Serum 0.72 mg/dL (0.55-1.02); EST Glomerular Filtration Rate 89 mL/min (>60); Est Glom Filt Rate - Afr Amer 108 mL/min (>60); Estimated Creatinine Clearance 83.47 ml/min; Glucose 98 mg/dL (74-106); Potassium 3.3 mmol/L (3.5-5.1); Sodium Level 144 mmol/L (136-145)
[2018-11-18] MEDS: BACITRACIN 15 GM Tube 1 APPLIC TOPICAL (08:44)
[2018-11-18] MEDS: Enoxaparin 40 MG/0.4 ML Syringe SC (08:44)
[2018-11-18] MEDS: Aspirin 325 MG Tablet PO (08:45)
[2018-11-18] MEDS: Famotidine 20 MG Tablet PO (08:45)
[2018-11-18] MEDS: Citalopram 20 MG Tablet PO (08:45)
[2018-11-18 08:52] VITALS: BP 167/79; PULSE 87; RESP 18; TEMP 36.7; O2SAT 98
[2018-11-18 09:11] LABS: Bedside Glucose 171 mg/dL (70-110)
--- NOTE | 2018-11-18 09:50 | DCINST_ITS ---
You will use the following diet at home:: Calorie/Carbohydrate Controlled (specify 1200, 1400, etc) - 1800 Your food should be the consistency of: Regular Your liquids should be the consistency of: Regular/Thin Discharge Activity: Return to Normal Activity Weight Bearing Status: Weight bearing as tolerated Call your doctor if you observe: Fever of 101 or Higher, Shortness of breath, Fainting spells Instructions: Using a Blood Sugar Log, Long-Term Complications of Diabetes, Hyperglycemia (High Blood Sugar), Hypoglycemia (Low Blood Sugar), Resources for People with Diabetes, What is Type 1 Diabetes?, How to Check Your Blood Sugar, Healthy Meals for Diabetes, Managing Diabetes: The A1C Test, Understanding Type 1 Diabetes Additional Instructions: patient advised to get an supervisor photostat in [facility] to have better control of diabetes Allergies/Adverse Reactions: Allergies Penicillins Adverse Reaction (Verified 11/16/18 09:31) Itching Medications to take at Discharge ALPRAZolam [Xanax] 0.5 mg PO BID PRN PRN 11/13/18 Fluticasone/Salmeterol [Advair 250-50 Diskus] 1 ea IH DAILY PRN 11/13/18 Insulin Glargine,Hum.rec.anlog [Lantus] 25 unit SQ BID 11/13/18 Aspirin 325 mg PO DAILY@0800 11/16/18 Atorvastatin Calcium [Lipitor] 80 mg PO QHS 11/16/18 Citalopram [Celexa] 20 mg PO DAILY 11/16/18 Famotidine [Pepcid] 20 mg PO DAILY 11/16/18 Insulin Lispro [Humalog KwikPen] 18 unit SUBCUT TIDAC 11/16/18 traZODone [Desyrel] 50 mg PO QHS 11/16/18 Insulin Glargine [Lantus SoloStar Pen] 20 units SUBCUT UD #10 pen 11/18/18 Lisinopril [Zestril] 20 mg PO DAILY #30 tab 11/18/18 The following prescriptions were given: Insulin Glargine [Lantus SoloStar Pen] 20 units SUBCUT UD #10 pen Transmission Status: Pending to [facility] Lisinopril [Zestril] 20 mg PO DAILY #30 tab Transmission Status: Pending to [facility] Primary Care Physician: [facility] Doctor,Out of [Primary Care Provider] - Please follow up with your Primary Care Physician in: follow up with PCP in [facility]. Test Results: Test results from this visit will be discussed in further detail at your follow- up appointment, if applicable.
--- NOTE | 2018-11-18 09:53 | PCM.DC.SUM ---
Discharge Date and Diagnosis Date of Admission: 11/16/18 Date of Discharge: 11/18/18 - Primary Discharge Diagnosis DKA - Secondary Discharge Diagnosis Chronic Problems (Last Updated 11/13/18 @ 07:36 by Kana Brannon MD) Type 1 diabetes mellitus (Chronic) CAD (coronary artery disease) (Chronic) Hypertension (Chronic) Tobacco abuse (Chronic) IBS (irritable bowel syndrome) (Chronic) Hospital Course and Treatment Imaging Results: Diagnostic Data Chest X-Ray 11/16/18 09:42 IMPRESSION: No acute abnormality is seen. Electronically Signed: Kermit Manuel, at 10:11 EDT , Service support , critical care- Dr Sierra Operations: None Procedures: None Summary of Care Provided: The patient is a 58 year old F with a history of type 1 diabetes. Patient was recently admitted and managed for DKA and discharge exactly 2 days ago. Patient insists that she is compliant with her insulin and states that she took about 25 units of her Lantus yesterday and also took 18 units of Humalog. Patient is visiting her father from [place] and says she is follows up with a doctor in [place] for her diabetes. Upon discharge 2 days ago she went home but states she started having worsening nausea and vomiting and symptoms were not abating so she decided to come into the ED. Patient thinks that she has DKA and states this is her first episode of DKA in her lifetime. She does not understand why she is been getting DKA as this is compliant with her insulin. She denied any chest pain, palpitations or dizziness, fever or chills, shortness of breath or any other symptoms. Vitals in the ED was significant for heart rate of 110. EKG showed normal sinus rhythm but she was tachycardic. Chest x-ray showed no acute cardiopulmonary process and CBC was 11.3. Blood glucose on admission was 508 and bicarb was 7. Anion gap was 30. VBG done showed a pH of 7.144 and PCO2 of 13. She had moderate acetone level and initial troponin was negative. Patient was admitted to the ICU to be managed for DKA. She was started on IV fluids and insulin drip in the ED. Patient's gap closed and glucose level trended down. She was transitioned back to sc insulin 20IU in the evening and 25IU in the morning. She is also to coninue with insulin lispro 18IU tidwm. Patient remained stable and was discharged home on 11/18/18. Patient was seen and examined prior to discharge. She felt much better and had no complaints. Review of systems was otherwise negative. Labs and vitals reviewed. Home medications reviewed and reconciled. o/e: Vital Signs Height 5 ft 7 in Weight: 132 lb 11.492 oz Weight in Pounds 132.7 lbs Pulse Ox 98 Temperature 98.1 F Pulse Rate 87 Respiratory Rate 18 Blood Pressure [BP] 141/45 Blood Pressure 167/79 Blood Pressure Position [BP] Semi-Fowlers Blood Pressure Position Semi-Fowlers General: Alert, Oriented x3, Cooperative HEENT: Atraumatic, PERRLA, EOMI, Normocephalic Oral: Dry Mucosa Neck: Supple, No JVD, Negative Carotid Bruits Lungs: Clear to auscultation, Normal air movement, No rhonchi, No wheeze, No rales Cardiovascular: Regular rate, Normal S1, Normal S2, No murmurs, Tachycardic Abdomen: Bowel Sounds Present, Soft, Non Tender, Non-Distended, No Hepato-splenomegaly Extremities: No clubbing, No cyanosis, No edema, Capillary Refill Less than 3 Seconds Skin: No rashes, No breakdown Musculoskeletal: No Tenderness to Palpation of Joints or Extremities Lymphatic: No Cervical, Supraclavicular, or Inguinal Adenopathy Neurological: Cranial nerves II-XII grossly intact, Neuro grossly intact, Motor Exam 5/5 strength throughout Psych/Mental Status: Normal Affect, Appropriate, Alert and oriented to time, place, person, mood and affect Of note, patient was started on lisinopril during this admission on account of elevated blood pressure. She was given a prescription for p.o. lisinopril 20 mg daily. She is follow-up with her primary care doctor in [place] and also counseled to establish care with an business liaison officer in [place] for better control of her diabetes. - Physical Exam Vital Signs Temp Pulse Resp BP Pulse Ox 98.1 F 87 18 167/79 H 98 11/18/18 08:52 11/18/18 08:52 11/18/18 08:52 11/18/18 08:52 11/18/18 08:52 Oxygen Delivery Method Room Air Weight: 132 lb 11.492 oz Body Mass Index (BMI) 20.7 Finger Stick Blood Glucose 188 Intake and Output for Last 24 Hours 11/16/18 11/17/18 11/18/18 23:59 23:59 23:59 Intake Total 5096 / 5096 950 / 1310 750 / 750 Output Total 1025 / 1025 300 / 300 Balance 4071 / 4071 650 / 1010 750 / 750 Laboratory Tests Past 24 Hrs 11/18/18 11/18/18 06:47 06:47 WBC 7.1 RBC 3.79 L Hgb 11.9 L Hct 33.2 L MCV 87.6 MCH 31.4 MCHC 35.8 RDW 12.0 RDW Differential 37.6 Plt Count 225 MPV 10.1 Immature Gran % (Auto) 0.300 Neut % (Auto) 58.1 Lymph % (Auto) 31.0 [place] % (Auto) 7.7 Eos % (Auto) 2.5 Baso % (Auto) 0.4 Absolute Neuts (auto) 4.1 Absolute Lymphs (auto) 2.21 Total Counted Not Reportable Sodium 144 Potassium 3.3 L Chloride 112 H Carbon Dioxide 23.0 Anion Gap 9 BUN 7 Creatinine 0.72 Estim Creat Clear Calc 83.47 Est GFR (MDRD) Af Amer 108 Est GFR (MDRD) Non-Af 89 BUN/Creatinine Ratio 9.7 L Glucose 98 Calcium 8.1 L POC Glucose 11/18/18 11/17/18 11/17/18 08:42 22:32 16:39 POC Glucose 171 H 93 72 11/17/18 11/17/18 16:21 11:29 POC Glucose 68 L 206 H Discharge Diet: 1800 Calorie Control Diet Discharge Activity: Return to Normal Activity Weight Bearing Status: Weight bearing as tolerated Call your doctor if you observe: Fever of 101 or Higher, Shortness of breath, Fainting spells Home Medications: Medications to take at Discharge ALPRAZolam [Xanax] 0.5 mg PO BID PRN PRN 11/13/18 Fluticasone/Salmeterol [Advair 250-50 Diskus] 1 ea IH DAILY PRN 11/13/18 Insulin Glargine,Hum.rec.anlog [Lantus] 25 unit SQ BID 11/13/18 Aspirin 325 mg PO DAILY@0800 11/16/18 Atorvastatin Calcium [Lipitor] 80 mg PO QHS 11/16/18 Citalopram [Celexa] 20 mg PO DAILY 11/16/18 Famotidine [Pepcid] 20 mg PO DAILY 11/16/18 Insulin Lispro [Humalog KwikPen] 18 unit SUBCUT TIDAC 11/16/18 traZODone [Desyrel] 50 mg PO QHS 11/16/18 Insulin Glargine [Lantus SoloStar Pen] 20 units SUBCUT UD #10 pen 11/18/18 Lisinopril [Zestril] 20 mg PO DAILY #30 tab 11/18/18 Following Prescrptions Were Given to Patient: Insulin Glargine [Lantus SoloStar Pen] 20 units SUBCUT UD #10 pen Transmission Status: Received by [facility] Lisinopril [Zestril] 20 mg PO DAILY #30 tab Transmission Status: Received by [facility] Primary Care Physician: [facility] Doctor,Out of [Primary Care Provider] - Please follow up with your Primary Care Physician in: follow up with PCP in [facility]. Patient Instructions: Using a Blood Sugar Log, Long-Term Complications of Diabetes, Hyperglycemia (High Blood Sugar), Hypoglycemia (Low Blood Sugar), Resources for People with Diabetes, What is Type 1 Diabetes?, How to Check Your Blood Sugar, Healthy Meals for Diabetes, Managing Diabetes: The A1C Test, Understanding Type 1 Diabetes Disposition: Home Minutes spent on discharge:: 40 Patient Condition:: Stable Medical Necessity - Tobacco Use Smoking Status: Former smoker Meaningful Use Info Meaningful Use Diagnoses (Choose all that apply): None applicable Code Visit Inpatient E&M: 24395 Disch Hosp
== END 2018-11-18 10:19 | disposition home or self-care (01) | DRG 639 ==
LOC: ED 10:21 → ICU 11:07 → MS2 11-17 11:50
PROVIDERS: Internal Medicine; Admitting Provider Student in an Organized Health Care Education/Training Program; Emergency Provider Emergency Medicine; Visit Provider Student in an Organized Health Care Education/Training Program
DX: E10.10 Type 1 diabetes mellitus with ketoacidosis without coma (principal); I25.10 Atherosclerotic heart disease of native coronary artery without angina pectoris; I10 Essential (primary) hypertension; K58.9 Irritable bowel syndrome, unspecified; Z79.4 Long term (current) use of insulin; J44.9 Chronic obstructive pulmonary disease, unspecified; Z95.5 Presence of coronary angioplasty implant and graft; Z87.891 Personal history of nicotine dependence; Z72.0 Tobacco use
CPT/HCPCS: 36415; 71045; 80048; 81001; 82009; 82040; 82803; 82962; 83735; 84484; 85025; 87040; 93005; 97802; 99285; J7030; A4216; J2405; J7799